=== PATIENT | female | born 1950 | race Caucasian/White ===

== ENCOUNTER → 2021-06-07 12:10 | Outpatient (CLI) | payer OTHER, SELFPAY ==
[2021-06-07 13:59] LABS: Add Manual Diff / Slide Review NO; Basophils Absolute Auto 0 /uL (0-100); Basophils Percent Auto 0.5 % (0-2); Eosinophils Absolute Auto 0 /uL (0-450); Hematocrit 40.6 % (36-46); Hemoglobin 13.1 g/dL (12.0-16.0); Lymphocytes Absolute Auto 1300 /uL (1100-4500); Lymphocytes Percent Auto 30.5 % (25-40); Mean Corpuscular HGB Conc 32.4 % (30-36); Mean Corpuscular Hemoglobin 32.6 PG (26-34); Mean Corpuscular Volume 100.7 fL (80-100); Monocytes Absolute Auto 300 /uL (0-900); Monocytes Percent Auto 6.4 % (3-14); Neutrophils Absolute Auto 2700 /uL (1500-7000); Neutrophils Percent Auto 62.6 % (50-75); Platelet Count 168 X10^3/uL (150-400); Red Blood Cell Count 4.03 X10^6/uL (4.0-5.2); Red Cell Distribution Width 14.1 % (11.6-14.8); White Blood Cell Count 4.3 X10^3/uL (4.5-11.0)
[2021-06-07 14:21] LABS: Alanine Aminotransferase 25 IU/L (<35); Albumin 4.2 g/dL (3.5-5.0); Albumin Globulin Ratio 1.6 (1.0-2.8); Alkaline Phosphatase 48 U/L (38-126); Aspartate Aminotransferase 40 IU/L (14-36); BUN Creatinine Ratio 22.5 (6-22); Bilirubin Total 1.4 mg/dL (0.2-1.3); Blood Urea Nitrogen 16 mg/dL (7-17); Calcium 9.7 mg/dL (8.4-10.2); Carbon Dioxide 27 mmol/L (22-32); Chloride 107 mmol/L (98-107); Cholesterol 184 mg/dL (140-199); Estimated Glomerular Filt Rate > 60.0 mL/min (>60); Globulin 2.7 g/dL (1.7-4.1); Glucose 98 mg/dL (80-110); HDL Cholesterol 96 mg/dL (40-60); HEMOLYSIS 15 (0-50); LDL Cholesterol Calculated 74 mg/dL (<100); Sodium 140 mmol/L (137-145); Total Protein 6.9 g/dL (6.3-8.2); Triglycerides 70 mg/dL (35-150)
[2021-06-07 14:51] LABS: TSH w/ Reflex to FT4 0.28 uIU/mL (0.47-4.68)
[2021-06-07 15:53] LABS: Free T4, Direct Thyroxine 1.52 ng/dL (0.78-2.19)
== END ==
PROVIDERS: PCP Family Medicine; Referring Provider Family Medicine; Visit Provider Family Medicine
DX: E78.5 Hyperlipidemia, unspecified (principal); E06.3 Autoimmune thyroiditis; M1A.9XX0 Chronic gout, unspecified, without tophus (tophi); J45.20 Mild intermittent asthma, uncomplicated
CPT/HCPCS: 36415; 80053; 80061; 84439; 84443; 85025

== ENCOUNTER 2021-07-11 10:30 | Outpatient (RCR) | payer OTHER, SELFPAY ==
--- NOTE | 2021-07-03 17:19 | PT.OIE ---
Current Diagnoses Other chronic pain (07/03/21) Dorsalgia, unspecified (07/03/21) Past Medical History (Last Updated 07/01/21 @ 13:59 by Gerald Bear MD) Asthma Bradycardia Chicken pox Chronic back pain Foot pain Gout Roberto's thyroiditis Hearing loss History of tubal ligation (~07/05/79) Hyperlipidemia Measles Osteoarthritis Shoulder pain Sleep apnea Urge incontinence Wears glasses Past Surgical History (Last Updated 06/10/21 @ 13:57 by Sondra Deleon) Anesthesia History of tubal ligation (~07/05/79) Visit Care Team Role Provider Type Gerald Bear MD Attending Provider Physician Family Provider Primary Care Provider Referring Provider Specialty: [facility] Practice Address: [address] [place] [address], [facility] Email: [email or web address] Physical Therapy Initial Evaluation PT-OP-A Visit Information Start: 07/03/21 16:40 Freq: Status: Active Protocol: Document 07/03/21 16:42 HH (Rec: 07/03/21 17:19 HH [email or web address]) Out-Patient Physical Therapy Visit Information Visit Information Visit Type Initial Evaluation Visit Start Time 11:15 Visit Stop Time 12:00 Total Visit Minutes 45 Visit Number 10/16 Number of SALES PROFESSIONAL BILINGUAL Visits 0 Evaluation Information Evaluation Date 07/03/21 Precautions Precautions LOWER KAL[place]AG PT-OP-B Current Condition Start: 07/03/21 16:40 Freq: Status: Active Protocol: Document 07/03/21 16:42 HH (Rec: 07/03/21 17:19 HH [email or web address]) Current Condition History of Current Condition Onset Date >1 year Current Complaints L sided neck pain and hip pain History of Current Condition Mary (Ismael) is a 71 yo female here for chronic L neck and hip pain. She stated her whole left side is compressed . L lateral hip tends to hurt more after sitting and walking for a long time which also makes her leg fall asleep and numb. Standing and lying supine tend to feel better. She described it is a constant achy and worst 4/10 during sleep when she lays on her side. It wakes her up every night and has to change position. Her neck tends to hurt with muscle ache and pulling pain at L upper trap. she feels it when shes stationary for awhile. Denies tingling and numbness to UE. She noticed her symptoms started getting worse since the pandemic because she is more sedentary. PT-OP-C Subjective Start: 07/03/21 16:40 Freq: Status: Active Protocol: Document 07/03/21 16:42 HH (Rec: 07/03/21 17:19 [email or web address]) Patient Questionnaires Oswestry Low Back Index Oswestry Score 16 Oswestry Impairment 1 to 19% Impaired (Score 1-19) OP-PT Pain Assessment Location L neck Pain Location Details paraspinals and upper trap Intensity 3 Scale Used Numeric (0 - 10) Description Aching,Dull Frequency Frequent Pain Aggravating Factors Activity,Exercise Pain Alleviating Factors Inactivity L hip Pain Location Details posterior to greater trochanter Intensity 4 Scale Used Numeric (0 - 10) Description Aching,Dull Frequency Constant Pain Aggravating Factors Position,ADL's,Sitting,Walking Pain Alleviating Factors Inactivity,Lying Supine PT-OP-D Balance Start: 07/03/21 16:40 Freq: Status: Active Protocol: Document 07/03/21 16:42 HH (Rec: 07/03/21 17:19 [email or web address]) Balance Tests Single Limb Standing Single Limb- Right 8s Single Limb- Left 2s Other Other Balance Tests Performed R hip drop noted with SLS on L PT-OP-F Manual Assessment Start: 07/03/21 16:40 Freq: Status: Active Protocol: Document 07/03/21 16:42 HH (Rec: 07/03/21 17:19 [email or web address]) Manual Assessments Soft Tissue Assessment Soft Tissue Mobility Assessment significant pain to pressure inferior posterior to L greater trochanter hypertonicity noted at L piriformis hypertonicity at L cervical paraspinal, levator scap and upper trap PT-OP-G Mobility & Gait Start: 07/03/21 16:40 Freq: Status: Active Protocol: Document 07/03/21 16:42 HH (Rec: 07/03/21 17:19 [email or web address]) OP Gait Assessment Comments Gait Comments R hip drop noted with stance phase on LLE PT-OP-H Neuro Start: 07/03/21 16:40 Freq: Status: Active Protocol: Document 07/03/21 16:42 HH (Rec: 07/03/21 17:19 [email or web address]) Sensation Evaluation Gross Sensation Gross Sensation WNL Deep Tendon Reflex & Clonus Assessment Deep Tendon Reflex Bilateral Achilles Deep Tendon Reflex 2+ Normal Bilateral Patellar Deep Tendon Reflex 3+ Normal But Brisk PT-OP-K Range of Motion Start: 07/03/21 16:40 Freq: Status: Active Protocol: Document 07/03/21 16:42 HH (Rec: 07/03/21 17:19 [email or web address]) Cervical Spine Range of Motion Cervical Spine Active Degrees Testing Position Sitting Flexion 53 Extension 50 Rotation Left 40 Rotation Right 70 Lateral Flexion Left 30 Lateral Flexion Right 15 ROM Limitations Soft Tissue Tightness,Pain Lumbar Spine Range of Motion Lumbar Spine Active Degrees Comments WFL Hip Goniometric Range of Motion Hip Left Active Hip ROM WFL Yes Right Active Hip ROM WFL Yes Comments pulling pain at greater trochanter and piriformis with piriformis stretch. PT-OP-L Special Tests Start: 07/03/21 16:40 Freq: Status: Active Protocol: Document 07/03/21 16:42 HH (Rec: 07/03/21 17:19 [email or web address]) Special Tests Cervical Spine Special Tests Spurling's Test Test Results +VE L Foraminal Compression Test Results +VE L Comments extension and rotation to L Hip Special Tests FADDIR Test Results +VE Comments pulling pain at greater trochanter and piriformis with piriformis stretch. Straight Leg Raise Test Results -ve Piriformis Test Results +VE Comments pulling pain at greater trochanter and piriformis with piriformis stretch. Scour Test Test Results -ve CHACHO Test Results -ve PT-OP-M Strength Start: 07/03/21 16:40 Freq: Status: Active Protocol: Document 07/03/21 16:42 (Rec: 07/03/21 17:19 [email or web address]) Hip Strength Hip Manual Muscle Testing Right Flexion (L2) 4+ Good+ Extension (S1) 4+ Good+ Abduction 4+ Good+ Adduction 4+ Good+ Left Flexion (L2) 4- Good- Extension (S1) 4- Good- Abduction 4- Good- Adduction 4- Good- PT-OP-T Assessment and Plan Start: 07/03/21 16:40 Freq: Status: Active Protocol: Document 07/03/21 16:42 (Rec: 07/03/21 17:19 [email or web address]) Physical Therapy Assessment Evaluation Complexity Number of Personal Factors/Comorbidities 3 or More Number of Body Systems Impaired 3 Clinical Presentation at Evaluation Stable Goals special test Impairment radiating pain to L shoulder and arm Foreman/Project Manager Goal (LTG) pt will show improved neural tension to not have neural signs with cervical special tests LTG Duration 10 weeks gait Impairment pt shows R hip drop during gait Short Term Goal (STG) pt will show improved SL stability and strength to be able to stand on LLE >10 s with min R hip drop STG Duration 5 weeks [facility] Goal (LTG) pt will show improved SL stability and strength to be able to amb without R hip drop LTG Duration 10 weeks night pain Impairment night L hip pain Short Term Goal (STG) pt will be able to maintain good sleep instead of being waking up by hip pain >3 nights a week STG Duration 5 weeks [facility] Goal (LTG) pt will be able to maintain good sleep for the entire week withou being waking up by hip pain LTG Duration 10 weeks NDI Impairment will assess next visit quickdash Impairment will assess next visit Assessment Summary Assessment Mary Reaves) is a 71 yo female here for her L neck and hip pain. Upon assessment, pt shows signs of L greater trochanteric bursitis who has L hip weakness that contributes to her R hip drop during gait. She also has signs of cervical radiculopathy with radiating pain to upper trap in cervical closed pack position. Limited cervical ROM noted. Pt will benefit from skilled therapy to improve her L hip abductor strength, SL stability and cervical mobility. Therefore, she can perform ADLs and maintain good sleep. Physical Therapy Plan Frequency and Duration Frequency of Treatment 2x/Week Duration of Treatment 10 weeks Plan of Care Start Date 07/03/21 Plan of Care End Date 09/16/21 Therapeutic Interventions Therapeutic Interventions Aquatic Therapy,Balance Training,Gait Training,Home Exercise Program,Joint Mobilizations,Manual Therapy, Neuromuscular Re-education, Patient/Caregiver Education, Self-Care/Home Management,Soft Tissue Mobilization,Taping, Therapeutic Activities, Therapeutic Exercises Modalities Cold Pack/Ice Massage,Electric Stimulation,Hot Packs, Infrared Therapy,Traction- Mechanical,Ultrasound Next Visit Focus/Plan Next Note Type Treatment Note Next Visit Plan piri stretch, traction hip and neck STM on greater tro and piri clamshell and bridging
--- NOTE | 2021-07-03 17:19 | PT.OPPOC ---
Physical, Occupational & Speech Therapy At [facility] Current Diagnoses Other chronic pain (07/03/21) Dorsalgia, unspecified (07/03/21) Visit Care Team Role Provider Type Gerald Bear MD Attending Provider Physician Family Provider Primary Care Provider Referring Provider Specialty: Family Practice Address: [address] [place] [address], [facility] Email: [email or web address] Plan Of Care PT-OP-T Assessment and Plan Start: 07/03/21 16:40 Freq: Status: Active Protocol: Document 07/03/21 16:42 HH (Rec: 07/03/21 17:19 [email or web address]) Physical Therapy Assessment Evaluation Complexity Number of Personal Factors/Comorbidities 3 or More Number of Body Systems Impaired 3 Clinical Presentation at Evaluation Stable Goals special test Impairment radiating pain to L shoulder and arm Detention Goal (LTG) pt will show improved neural tension to not have neural signs with cervical special tests LTG Duration 10 weeks gait Impairment pt shows R hip drop during gait Short Term Goal (STG) pt will show improved SL stability and strength to be able to stand on LLE >10 s with min R hip drop STG Duration 5 weeks Acid Washer Operator Goal (LTG) pt will show improved SL stability and strength to be able to amb without R hip drop LTG Duration 10 weeks night pain Impairment night L hip pain Short Term Goal (STG) pt will be able to maintain good sleep instead of being waking up by hip pain >3 nights a week STG Duration 5 weeks Acid Washer Operator Goal (LTG) pt will be able to maintain good sleep for the entire week withou being waking up by hip pain LTG Duration 10 weeks NDI Impairment will assess next visit quickdash Impairment will assess next visit Assessment Summary Assessment Mary Reaves) is a 71 yo female here for her L neck and hip pain. Upon assessment, pt shows signs of L greater trochanteric bursitis who has L hip weakness that contributes to her R hip drop during gait. She also has signs of cervical radiculopathy with radiating pain to upper trap in cervical closed pack position. Limited cervical ROM noted. Pt will benefit from skilled therapy to improve her L hip abductor strength, SL stability and cervical mobility. Therefore, she can perform ADLs and maintain good sleep. Physical Therapy Plan Frequency and Duration Frequency of Treatment 2x/Week Duration of Treatment 10 weeks Plan of Care Start Date 07/03/21 Plan of Care End Date 09/16/21 Therapeutic Interventions Therapeutic Interventions Aquatic Therapy,Balance Training,Gait Training,Home Exercise Program,Joint Mobilizations,Manual Therapy, Neuromuscular Re-education, Patient/Caregiver Education, Self-Care/Home Management,Soft Tissue Mobilization,Taping, Therapeutic Activities, Therapeutic Exercises Modalities Cold Pack/Ice Massage,Electric Stimulation,Hot Packs, Infrared Therapy,Traction- Mechanical,Ultrasound Next Visit Focus/Plan Next Note Type Treatment Note Next Visit Plan piri stretch, traction hip and neck STM on greater tro and piri clamshell and bridging Plan of Care Dates Plan of Care Start Date 07/03/21 Plan of Care End Date 09/16/21 Electronically Signed by: Stacey Valerio, PT 07/03/21 [id number] Please Sign and Return: I have reviewed this Plan of Care and certify that the skilled therapy services above are required to meet the patient?s needs. Physician Signature Date Printed Name and Credentials Clinical Instructor Signature Printed Name and Credentials
--- NOTE | 2021-07-05 16:46 | PT.OTN ---
Current Diagnoses Other chronic pain (07/05/21) Dorsalgia, unspecified (07/05/21) Physical Therapy Treatment Note PT-OP-A Visit Information Start: 07/03/21 16:40 Freq: Status: Active Protocol: Document 07/05/21 13:01 (Rec: 07/05/21 16:46 [id number]) Out-Patient Physical Therapy Visit Information Visit Information Visit Type Treatment Note Visit Start Time 13:00 Visit Stop Time 13:55 Total Visit Minutes 55 Visit Number 11/16 Number of BALANCE WHEEL FACER Visits 0 PT-OP-B Current Condition Start: 07/03/21 16:40 Freq: Status: Active Protocol: Document 07/03/21 16:42 HH (Rec: 07/03/21 17:19 [email or web address]) Current Condition History of Current Condition Onset Date >1 year Current Complaints L sided neck pain and hip pain History of Current Condition Mary Reaves) is a 71 yo female here for chronic L neck and hip pain. She stated her whole left side is compressed . L lateral hip tends to hurt more after sitting and walking for a long time which also makes her leg fall asleep and numb. Standing and lying supine tend to feel better. She described it is a constant achy and worst 4/10 during sleep when she lays on her side. It wakes her up every night and has to change position. Her neck tends to hurt with muscle ache and pulling pain at L upper trap. she feels it when shes stationary for awhile. Denies tingling and numbness to UE. She noticed her symptoms started getting worse since the pandemic because she is more sedentary. PT-OP-C Subjective Start: 07/03/21 16:40 Freq: Status: Active Protocol: Document 07/05/21 13:01 (Rec: 07/05/21 16:46 [id number]) OP-PT Subjective Patient Comments Patient Comments Im ready to do therapy Patient Questionnaires Neck Disability Index NDI Score 11 Neck Disability Index Impairment 20 to 39% Impaired (Score 10- 19) Quick Dash- Upper Extremity Quick Dash UE Score 18.18 Quick Dash UE Impairment 1 to 19% Impaired (Score 1-19) PT-OP-D Balance Start: 07/03/21 16:40 Freq: Status: Active Protocol: Document 07/03/21 16:42 HH (Rec: 07/03/21 17:19 [email or web address]) Balance Tests Single Limb Standing Single Limb- Right 8s Single Limb- Left 2s Other Other Balance Tests Performed R hip drop noted with SLS on L PT-OP-F Manual Assessment Start: 07/03/21 16:40 Freq: Status: Active Protocol: Document 07/03/21 16:42 HH (Rec: 07/03/21 17:19 [email or web address]) Manual Assessments Soft Tissue Assessment Soft Tissue Mobility Assessment significant pain to pressure inferior posterior to L greater trochanter hypertonicity noted at L piriformis hypertonicity at L cervical paraspinal, levator scap and upper trap PT-OP-G Mobility & Gait Start: 07/03/21 16:40 Freq: Status: Active Protocol: Document 07/03/21 16:42 HH (Rec: 07/03/21 17:19 [email or web address]) OP Gait Assessment Comments Gait Comments R hip drop noted with stance phase on LLE PT-OP-H Neuro Start: 07/03/21 16:40 Freq: Status: Active Protocol: Document 07/03/21 16:42 HH (Rec: 07/03/21 17:19 [email or web address]) Sensation Evaluation Gross Sensation Gross Sensation WNL Deep Tendon Reflex & Clonus Assessment Deep Tendon Reflex Bilateral Achilles Deep Tendon Reflex 2+ Normal Bilateral Patellar Deep Tendon Reflex 3+ Normal But Brisk PT-OP-K Range of Motion Start: 07/03/21 16:40 Freq: Status: Active Protocol: Document 07/03/21 16:42 HH (Rec: 07/03/21 17:19 [email or web address]) Cervical Spine Range of Motion Cervical Spine Active Degrees Testing Position Sitting Flexion 53 Extension 50 Rotation Left 40 Rotation Right 70 Lateral Flexion Left 30 Lateral Flexion Right 15 ROM Limitations Soft Tissue Tightness,Pain Lumbar Spine Range of Motion Lumbar Spine Active Degrees Comments WFL Hip Goniometric Range of Motion Hip Left Active Hip ROM WFL Yes Right Active Hip ROM WFL Yes Comments pulling pain at greater trochanter and piriformis with piriformis stretch. PT-OP-L Special Tests Start: 07/03/21 16:40 Freq: Status: Active Protocol: Document 07/03/21 16:42 HH (Rec: 07/03/21 17:19 [email or web address]) Special Tests Cervical Spine Special Tests Spurling's Test Test Results +VE L Foraminal Compression Test Results +VE L Comments extension and rotation to L Hip Special Tests FADDIR Test Results +VE Comments pulling pain at greater trochanter and piriformis with piriformis stretch. Straight Leg Raise Test Results -ve Piriformis Test Results +VE Comments pulling pain at greater trochanter and piriformis with piriformis stretch. Scour Test Test Results -ve CHACHO Test Results -ve PT-OP-M Strength Start: 07/03/21 16:40 Freq: Status: Active Protocol: Document 07/03/21 16:42 (Rec: 07/03/21 17:19 [email or web address]) Hip Strength Hip Manual Muscle Testing Right Flexion (L2) 4+ Good+ Extension (S1) 4+ Good+ Abduction 4+ Good+ Adduction 4+ Good+ Left Flexion (L2) 4- Good- Extension (S1) 4- Good- Abduction 4- Good- Adduction 4- Good- PT-OP-Q Treatments Start: 07/03/21 16:40 Freq: Status: Active Protocol: Document 07/05/21 13:01 (Rec: 07/05/21 16:46 [id number]) Therapeutic Exercises Supine Exercises supine abd isometric Supine Exercise Name yellow band on knees , shoulder width Side bilateral Reps/Minutes 10s hold x 5 Comments for HEP bridging Side bilateral Reps/Minutes 3 sec hold x 10 Comments for HEP Standing Exercises upper trap stretch Reps/Minutes 15sx5 Comments for HEP pec stretch Reps/Minutes 15s x5 Comments for HEP Manual Therapy Treatment Soft Tissue Mobilization L glute Body Location + piriformis Mobilization Type Myofascial Release,Sustained Pressure,Trigger Point Release Intensity/Depth Moderate Body Position Sidelying Manual Traction hip Details L hip Body Position Supine Reps/Duration 10s hold x10 Comments inferior long axis PT-OP-R Modalities Start: 07/03/21 16:40 Freq: Status: Active Protocol: Document 07/05/21 13:01 (Rec: 07/05/21 16:46 [id number]) Hot Pack/Cold Pack Treatment Hot Pack Location cervical and lumbar Patient Position Supine Treatment Duration (minutes) 10 Patient Tolerance Good PT-OP-T Assessment and Plan Start: 07/03/21 16:40 Freq: Status: Active Protocol: Document 07/05/21 13:01 (Rec: 07/05/21 16:46 HH [id number]) Physical Therapy Assessment Goals special test Impairment radiating pain to L shoulder and arm Fdc Goal (LTG) pt will show improved neural tension to not have neural signs with cervical special tests LTG Duration 10 weeks gait Impairment pt shows R hip drop during gait Short Term Goal (STG) pt will show improved SL stability and strength to be able to stand on LLE >10 s with min R hip drop STG Duration 5 weeks Fdc Goal (LTG) pt will show improved SL stability and strength to be able to amb without R hip drop LTG Duration 10 weeks night pain Impairment night L hip pain Short Term Goal (STG) pt will be able to maintain good sleep instead of being waking up by hip pain >3 nights a week STG Duration 5 weeks Supervisor Decorating Goal (LTG) pt will be able to maintain good sleep for the entire week withou being waking up by hip pain LTG Duration 10 weeks NDI Impairment NDI =11 Supervisor Decorating Goal (LTG) pt will be able to score <5 on NDI to show improved quality of sleep LTG Duration 8 weeks quickdash Impairment score= 18.18 Supervisor Decorating Goal (LTG) pt will be able to score <10 on quickdash to show improved L UE mobility and strength for ADLs. LTG Duration 8 weeks Assessment Summary Assessment Introduced gravity eliminated hip strengthening ex in supine and neck stretches. She rodrigo session well. Will assess her tolerance next visit. Physical Therapy Plan Frequency and Duration Frequency of Treatment 2x/Week Duration of Treatment 10 weeks Plan of Care Start Date 07/03/21 Plan of Care End Date 09/16/21 Therapeutic Interventions Therapeutic Interventions Aquatic Therapy,Balance Training,Gait Training,Home Exercise Program,Joint Mobilizations,Manual Therapy, Neuromuscular Re-education, Patient/Caregiver Education, Self-Care/Home Management,Soft Tissue Mobilization,Taping, Therapeutic Activities, Therapeutic Exercises Modalities Cold Pack/Ice Massage,Electric Stimulation,Hot Packs, Infrared Therapy,Traction- Mechanical,Ultrasound Next Visit Focus/Plan Next Note Type Treatment Note Next Visit Plan piri stretch, traction hip and neck STM on greater tro and piri clamshell and bridging
--- NOTE | 2021-07-09 12:00 | PT.OTN ---
Current Diagnoses Other chronic pain (07/09/21) Dorsalgia, unspecified (07/09/21) Physical Therapy Treatment Note PT-OP-A Visit Information Start: 07/03/21 16:40 Freq: Status: Active Protocol: Document 07/09/21 11:17 HH (Rec: 07/09/21 12:00 [id number]) Out-Patient Physical Therapy Visit Information Visit Information Visit Type Treatment Note Visit Start Time 11:17 Visit Stop Time 12:00 Total Visit Minutes 43 Visit Number 12/14 Number of THREAD REELER Visits 0 PT-OP-B Current Condition Start: 07/03/21 16:40 Freq: Status: Active Protocol: Document 07/03/21 16:42 HH (Rec: 07/03/21 17:19 [email or web address]) Current Condition History of Current Condition Onset Date >1 year Current Complaints L sided neck pain and hip pain History of Current Condition Mary Reaves) is a 71 yo female here for chronic L neck and hip pain. She stated her whole left side is compressed . L lateral hip tends to hurt more after sitting and walking for a long time which also makes her leg fall asleep and numb. Standing and lying supine tend to feel better. She described it is a constant achy and worst 4/10 during sleep when she lays on her side. It wakes her up every night and has to change position. Her neck tends to hurt with muscle ache and pulling pain at L upper trap. she feels it when shes stationary for awhile. Denies tingling and numbness to UE. She noticed her symptoms started getting worse since the pandemic because she is more sedentary. PT-OP-C Subjective Start: 07/03/21 16:40 Freq: Status: Active Protocol: Document 07/09/21 11:17 HH (Rec: 07/09/21 12:00 [id number]) OP-PT Subjective Patient Comments Patient Comments I was sore for a day after last session. And my hip feels really good after. I dont have any numbness to my L hand either now. PT-OP-D Balance Start: 07/03/21 16:40 Freq: Status: Active Protocol: Document 07/03/21 16:42 HH (Rec: 07/03/21 17:19 [email or web address]) Balance Tests Single Limb Standing Single Limb- Right 8s Single Limb- Left 2s Other Other Balance Tests Performed R hip drop noted with SLS on L PT-OP-F Manual Assessment Start: 07/03/21 16:40 Freq: Status: Active Protocol: Document 07/03/21 16:42 HH (Rec: 07/03/21 17:19 [email or web address]) Manual Assessments Soft Tissue Assessment Soft Tissue Mobility Assessment significant pain to pressure inferior posterior to L greater trochanter hypertonicity noted at L piriformis hypertonicity at L cervical paraspinal, levator scap and upper trap PT-OP-G Mobility & Gait Start: 07/03/21 16:40 Freq: Status: Active Protocol: Document 07/03/21 16:42 HH (Rec: 07/03/21 17:19 [email or web address]) OP Gait Assessment Comments Gait Comments R hip drop noted with stance phase on LLE PT-OP-H Neuro Start: 07/03/21 16:40 Freq: Status: Active Protocol: Document 07/03/21 16:42 HH (Rec: 07/03/21 17:19 [email or web address]) Sensation Evaluation Gross Sensation Gross Sensation WNL Deep Tendon Reflex & Clonus Assessment Deep Tendon Reflex Bilateral Achilles Deep Tendon Reflex 2+ Normal Bilateral Patellar Deep Tendon Reflex 3+ Normal But Brisk PT-OP-K Range of Motion Start: 07/03/21 16:40 Freq: Status: Active Protocol: Document 07/03/21 16:42 HH (Rec: 07/03/21 17:19 [email or web address]) Cervical Spine Range of Motion Cervical Spine Active Degrees Testing Position Sitting Flexion 53 Extension 50 Rotation Left 40 Rotation Right 70 Lateral Flexion Left 30 Lateral Flexion Right 15 ROM Limitations Soft Tissue Tightness,Pain Lumbar Spine Range of Motion Lumbar Spine Active Degrees Comments WFL Hip Goniometric Range of Motion Hip Left Active Hip ROM WFL Yes Right Active Hip ROM WFL Yes Comments pulling pain at greater trochanter and piriformis with piriformis stretch. PT-OP-L Special Tests Start: 07/03/21 16:40 Freq: Status: Active Protocol: Document 07/03/21 16:42 HH (Rec: 07/03/21 17:19 [email or web address]) Special Tests Cervical Spine Special Tests Spurling's Test Test Results +VE L Foraminal Compression Test Results +VE L Comments extension and rotation to L Hip Special Tests FADDIR Test Results +VE Comments pulling pain at greater trochanter and piriformis with piriformis stretch. Straight Leg Raise Test Results -ve Piriformis Test Results +VE Comments pulling pain at greater trochanter and piriformis with piriformis stretch. Scour Test Test Results -ve CHACHO Test Results -ve PT-OP-M Strength Start: 07/03/21 16:40 Freq: Status: Active Protocol: Document 07/03/21 16:42 HH (Rec: 07/03/21 17:19 HH [email or web address]) Hip Strength Hip Manual Muscle Testing Right Flexion (L2) 4+ Good+ Extension (S1) 4+ Good+ Abduction 4+ Good+ Adduction 4+ Good+ Left Flexion (L2) 4- Good- Extension (S1) 4- Good- Abduction 4- Good- Adduction 4- Good- PT-OP-Q Treatments Start: 07/03/21 16:40 Freq: Status: Active Protocol: Document 07/09/21 11:17 (Rec: 07/09/21 12:00 [id number]) Therapeutic Exercises Supine Exercises supine abd isometric Supine Exercise Name yellow band on knees , shoulder width Side bilateral Reps/Minutes 10s hold x 5 Comments for HEP bridging Side bilateral Reps/Minutes 3 sec hold x 10 Comments for HEP Standing Exercises wrist extensors stretch Side bilateral Reps/Minutes 10s x 5 Comments for HEP upper trap stretch Reps/Minutes 15sx5 Comments for HEP pec stretch Reps/Minutes 15s x5 Comments for HEP Gait Training Gait Activity hip level Surface ground level Distance/Duration 20 ft x 8 rounds Treatment Focus hip stability Comments hands on both hips, cues on level hip with mirror assistance. Manual Therapy Treatment Soft Tissue Mobilization L glute Body Location + piriformis Mobilization Type Myofascial Release,Sustained Pressure,Trigger Point Release Intensity/Depth Moderate Body Position Sidelying Manual Traction hip Details L hip Body Position Supine Reps/Duration 10s hold x10 Comments inferior long axis Self-Care/Home Management Treatment Education Other Education recommended pt to wear shoes with better heel support and cushion to provide lateral stability since she always wear sandals. PT-OP-R Modalities Start: 07/03/21 16:40 Freq: Status: Active Protocol: Document 07/05/21 13:01 (Rec: 07/05/21 16:46 [id number]) Hot Pack/Cold Pack Treatment Hot Pack Location cervical and lumbar Patient Position Supine Treatment Duration (minutes) 10 Patient Tolerance Good PT-OP-T Assessment and Plan Start: 07/03/21 16:40 Freq: Status: Active Protocol: Document 07/09/21 11:17 (Rec: 07/09/21 12:00 [id number]) Physical Therapy Assessment Goals special test Impairment radiating pain to L shoulder and arm Core Blower Operator Goal (LTG) pt will show improved neural tension to not have neural signs with cervical special tests LTG Duration 10 weeks gait Impairment pt shows R hip drop during gait Short Term Goal (STG) pt will show improved SL stability and strength to be able to stand on LLE >10 s with min R hip drop STG Duration 5 weeks Core Blower Operator Goal (LTG) pt will show improved SL stability and strength to be able to amb without R hip drop LTG Duration 10 weeks night pain Impairment night L hip pain Short Term Goal (STG) pt will be able to maintain good sleep instead of being waking up by hip pain >3 nights a week STG Duration 5 weeks Core Blower Operator Goal (LTG) pt will be able to maintain good sleep for the entire week withou being waking up by hip pain LTG Duration 10 weeks NDI Impairment NDI =11 Core Blower Operator Goal (LTG) pt will be able to score <5 on NDI to show improved quality of sleep LTG Duration 8 weeks quickdash Impairment score= 18.18 Core Blower Operator Goal (LTG) pt will be able to score <10 on quickdash to show improved L UE mobility and strength for ADLs. LTG Duration 8 weeks Assessment Summary Assessment pt shows good progress with less neck and radiating numbness to L hand, along with less hip pain at night. Added wrist extensor stretch today and recommended her to wear shoes with better heel support to provide lateral hip stability. Also educated her to keep her hip level during gait to prevent excessive stress on greater trochanter. Physical Therapy Plan Frequency and Duration Frequency of Treatment 2x/Week Duration of Treatment 10 weeks Plan of Care Start Date 07/03/21 Plan of Care End Date 09/16/21 Therapeutic Interventions Therapeutic Interventions Aquatic Therapy,Balance Training,Gait Training,Home Exercise Program,Joint Mobilizations,Manual Therapy, Neuromuscular Re-education, Patient/Caregiver Education, Self-Care/Home Management,Soft Tissue Mobilization,Taping, Therapeutic Activities, Therapeutic Exercises Modalities Cold Pack/Ice Massage,Electric Stimulation,Hot Packs, Infrared Therapy,Traction- Mechanical,Ultrasound Next Visit Focus/Plan Next Note Type Treatment Note Next Visit Plan piri stretch, traction hip and neck STM on greater tro and piri clamshell and bridging
--- NOTE | 2021-07-11 11:16 | PT.OTN ---
Current Diagnoses Other chronic pain (07/11/21) Dorsalgia, unspecified (07/11/21) Physical Therapy Treatment Note PT-OP-A Visit Information Start: 07/03/21 16:40 Freq: Status: Active Protocol: Document 07/11/21 10:37 HH (Rec: 07/11/21 11:15 [id number]) Out-Patient Physical Therapy Visit Information Visit Information Visit Type Treatment Note Visit Start Time 10:34 Visit Stop Time 11:15 Total Visit Minutes 41 Visit Number 01/14 Number of UX INFORMATION ARCHITECT Visits 0 PT-OP-B Current Condition Start: 07/03/21 16:40 Freq: Status: Active Protocol: Document 07/03/21 16:42 HH (Rec: 07/03/21 17:19 [email or web address]) Current Condition History of Current Condition Onset Date >1 year Current Complaints L sided neck pain and hip pain History of Current Condition Mary Reaves) is a 71 yo female here for chronic L neck and hip pain. She stated her whole left side is compressed . L lateral hip tends to hurt more after sitting and walking for a long time which also makes her leg fall asleep and numb. Standing and lying supine tend to feel better. She described it is a constant achy and worst 4/10 during sleep when she lays on her side. It wakes her up every night and has to change position. Her neck tends to hurt with muscle ache and pulling pain at L upper trap. she feels it when shes stationary for awhile. Denies tingling and numbness to UE. She noticed her symptoms started getting worse since the pandemic because she is more sedentary. PT-OP-C Subjective Start: 07/03/21 16:40 Freq: Status: Active Protocol: Document 07/11/21 10:37 HH (Rec: 07/11/21 11:15 [id number]) OP-PT Subjective Patient Comments Patient Comments I was sore yesterday but im pretty good now. I only had a little numbness to my L hand yesterday. Patient Reported Progress Improving PT-OP-D Balance Start: 07/03/21 16:40 Freq: Status: Active Protocol: Document 07/03/21 16:42 HH (Rec: 07/03/21 17:19 [email or web address]) Balance Tests Single Limb Standing Single Limb- Right 8s Single Limb- Left 2s Other Other Balance Tests Performed R hip drop noted with SLS on L PT-OP-F Manual Assessment Start: 07/03/21 16:40 Freq: Status: Active Protocol: Document 07/03/21 16:42 HH (Rec: 07/03/21 17:19 [email or web address]) Manual Assessments Soft Tissue Assessment Soft Tissue Mobility Assessment significant pain to pressure inferior posterior to L greater trochanter hypertonicity noted at L piriformis hypertonicity at L cervical paraspinal, levator scap and upper trap PT-OP-G Mobility & Gait Start: 07/03/21 16:40 Freq: Status: Active Protocol: Document 07/03/21 16:42 HH (Rec: 07/03/21 17:19 [email or web address]) OP Gait Assessment Comments Gait Comments R hip drop noted with stance phase on LLE PT-OP-H Neuro Start: 07/03/21 16:40 Freq: Status: Active Protocol: Document 07/03/21 16:42 HH (Rec: 07/03/21 17:19 [email or web address]) Sensation Evaluation Gross Sensation Gross Sensation WNL Deep Tendon Reflex & Clonus Assessment Deep Tendon Reflex Bilateral Achilles Deep Tendon Reflex 2+ Normal Bilateral Patellar Deep Tendon Reflex 3+ Normal But Brisk PT-OP-K Range of Motion Start: 07/03/21 16:40 Freq: Status: Active Protocol: Document 07/03/21 16:42 HH (Rec: 07/03/21 17:19 [email or web address]) Cervical Spine Range of Motion Cervical Spine Active Degrees Testing Position Sitting Flexion 53 Extension 50 Rotation Left 40 Rotation Right 70 Lateral Flexion Left 30 Lateral Flexion Right 15 ROM Limitations Soft Tissue Tightness,Pain Lumbar Spine Range of Motion Lumbar Spine Active Degrees Comments WFL Hip Goniometric Range of Motion Hip Left Active Hip ROM WFL Yes Right Active Hip ROM WFL Yes Comments pulling pain at greater trochanter and piriformis with piriformis stretch. PT-OP-L Special Tests Start: 07/03/21 16:40 Freq: Status: Active Protocol: Document 07/03/21 16:42 HH (Rec: 07/03/21 17:19 [email or web address]) Special Tests Cervical Spine Special Tests Spurling's Test Test Results +VE L Foraminal Compression Test Results +VE L Comments extension and rotation to L Hip Special Tests FADDIR Test Results +VE Comments pulling pain at greater trochanter and piriformis with piriformis stretch. Straight Leg Raise Test Results -ve Piriformis Test Results +VE Comments pulling pain at greater trochanter and piriformis with piriformis stretch. Scour Test Test Results -ve CHACHO Test Results -ve PT-OP-M Strength Start: 07/03/21 16:40 Freq: Status: Active Protocol: Document 07/03/21 16:42 HH (Rec: 07/03/21 17:19 HH [email or web address]) Hip Strength Hip Manual Muscle Testing Right Flexion (L2) 4+ Good+ Extension (S1) 4+ Good+ Abduction 4+ Good+ Adduction 4+ Good+ Left Flexion (L2) 4- Good- Extension (S1) 4- Good- Abduction 4- Good- Adduction 4- Good- PT-OP-Q Treatments Start: 07/03/21 16:40 Freq: Status: Active Protocol: Document 07/11/21 10:37 HH (Rec: 07/11/21 11:15 [id number]) Cardio Equipment Recumbent Stepper (Sci-Fit) Duration (Minutes) 4 Resistance 2 Seat Position 14 Therapeutic Exercises Supine Exercises supine clamshell Supine Exercise Name unilateral Resistance yellow band Reps/Minutes 10 x2 Comments for HEP bridging Side bilateral Reps/Minutes 3 sec hold x 10 Comments for HEP, reduce hip height Standing Exercises levator scap stretch Reps/Minutes 10 s hold x 3 Comments for HEP upper trap stretch Reps/Minutes 15sx5 Comments for HEP Gait Training Gait Activity hip level Surface ground level Distance/Duration 20 ft x 8 rounds Treatment Focus hip stability Comments hands on both hips, cues on level hip with mirror assistance. Manual Therapy Treatment Soft Tissue Mobilization L glute Body Location + piriformis Mobilization Type Myofascial Release,Sustained Pressure,Trigger Point Release Intensity/Depth Moderate Body Position Sidelying Comments significant reduce in pain at greater trochanter Nerve Glides median nerve glide Nerve passive by PT Details L PT-OP-R Modalities Start: 07/03/21 16:40 Freq: Status: Active Protocol: Document 07/05/21 13:01 HH (Rec: 07/05/21 16:46 [id number]) Hot Pack/Cold Pack Treatment Hot Pack Location cervical and lumbar Patient Position Supine Treatment Duration (minutes) 10 Patient Tolerance Good PT-OP-T Assessment and Plan Start: 07/03/21 16:40 Freq: Status: Active Protocol: Document 07/11/21 10:37 (Rec: 07/11/21 11:15 [id number]) Physical Therapy Assessment Goals special test Impairment radiating pain to L shoulder and arm Percussion Teacher Goal (LTG) pt will show improved neural tension to not have neural signs with cervical special tests LTG Duration 10 weeks gait Impairment pt shows R hip drop during gait Short Term Goal (STG) pt will show improved SL stability and strength to be able to stand on LLE >10 s with min R hip drop STG Duration 5 weeks Percussion Teacher Goal (LTG) pt will show improved SL stability and strength to be able to amb without R hip drop LTG Duration 10 weeks night pain Impairment night L hip pain Short Term Goal (STG) pt will be able to maintain good sleep instead of being waking up by hip pain >3 nights a week STG Duration 5 weeks Percussion Teacher Goal (LTG) pt will be able to maintain good sleep for the entire week withou being waking up by hip pain LTG Duration 10 weeks NDI Impairment NDI =11 Care Home Goal (LTG) pt will be able to score <5 on NDI to show improved quality of sleep LTG Duration 8 weeks quickdash Impairment score= 18.18 Care Home Goal (LTG) pt will be able to score <10 on quickdash to show improved L UE mobility and strength for ADLs. LTG Duration 8 weeks Assessment Summary Assessment Pt reports reduce in greater trochanter pain but did have some tightness at low back. Modified her bridging to lower height to reduce lumbar extension. Added supine unilateral clamshell and levator scap stretch. Will progress to SL clamshell next week Physical Therapy Plan Frequency and Duration Frequency of Treatment 2x/Week Duration of Treatment 10 weeks Plan of Care Start Date 07/03/21 Plan of Care End Date 09/16/21 Therapeutic Interventions Therapeutic Interventions Aquatic Therapy,Balance Training,Gait Training,Home Exercise Program,Joint Mobilizations,Manual Therapy, Neuromuscular Re-education, Patient/Caregiver Education, Self-Care/Home Management,Soft Tissue Mobilization,Taping, Therapeutic Activities, Therapeutic Exercises Modalities Cold Pack/Ice Massage,Electric Stimulation,Hot Packs, Infrared Therapy,Traction- Mechanical,Ultrasound Next Visit Focus/Plan Next Note Type Treatment Note Next Visit Plan piri stretch, traction hip and neck STM on greater tro and piri clamshell and bridging
--- NOTE | 2021-08-06 14:15 | PT.OPDS ---
Current Diagnoses Other chronic pain (07/11/21) Dorsalgia, unspecified (07/11/21) Visit Care Team Role Provider Type Gerald Bear MD Attending Provider Physician Family Provider Primary Care Provider Referring Provider Specialty: Family Practice Address: [address] [place] [address], [facility] Email: [email or web address] Visit Number Visit Number 01/14 Discharge Summary PT-OP-T Assessment and Plan Start: 07/03/21 16:40 Freq: Status: Active Protocol: Document 08/06/21 14:15 (Rec: 08/06/21 14:15 [email or web address]) Physical Therapy Plan Discharge Physical Therapy Discharge Reasons Patient Request Discharge Comments called pt today and she stated she has been doing well but cannot afford $40 copay. She agreed to continue her HEP and Dc from PT today.
== END 2021-08-07 13:56 ==
LOC: PHYS 10:30
PROVIDERS: Family Provider Family Medicine; PCP Family Medicine; Referring Provider Family Medicine; Visit Provider Family Medicine
DX: M54.9 Dorsalgia, unspecified (principal); G89.29 Other chronic pain
CPT/HCPCS: 97110; 97116; 97140; 97162

== ENCOUNTER → 2022-01-16 12:06 | Outpatient (CLI) | payer OTHER, SELFPAY ==
[2022-01-16 12:46] LABS: Add Manual Diff / Slide Review NO; Basophils Absolute Auto 0 /uL (0-100); Basophils Percent Auto 0.7 % (0-2); Eosinophils Absolute Auto 0 /uL (0-450); Eosinophils Percent Auto 0.1 % (2-4); Hematocrit 40.1 % (36-46); Hemoglobin 13.6 g/dL (12.0-16.0); Lymphocytes Absolute Auto 1300 /uL (1100-4500); Mean Corpuscular HGB Conc 33.8 % (30-36); Mean Corpuscular Hemoglobin 32.6 PG (26-34); Mean Corpuscular Volume 96.3 fL (80-100); Monocytes Absolute Auto 200 /uL (0-900); Monocytes Percent Auto 6.1 % (3-14); Neutrophils Absolute Auto 2600 /uL (1500-7000); Neutrophils Percent Auto 62.1 % (50-75); Platelet Count 163 X10^3/uL (150-400); Red Blood Cell Count 4.16 X10^6/uL (4.0-5.2); Red Cell Distribution Width 13.2 % (11.6-14.8); White Blood Cell Count 4.1 X10^3/uL (4.5-11.0)
[2022-01-16 12:50] LABS: Alanine Aminotransferase 21 IU/L (<35); Albumin 4.2 g/dL (3.5-5.0); Albumin Globulin Ratio 1.6 (1.0-2.8); Alkaline Phosphatase 41 U/L (38-126); Aspartate Aminotransferase 25 IU/L (14-36); Bilirubin Total 1.1 mg/dL (0.2-1.3); Blood Urea Nitrogen 19 mg/dL (7-17); Calcium 9.3 mg/dL (8.4-10.2); Carbon Dioxide 30 mmol/L (22-32); Chloride 105 mmol/L (98-107); Estimated Glomerular Filt Rate > 60 mL/min (>60); Globulin 2.7 g/dL (1.7-4.1); Glucose 120 mg/dL (80-110); HEMOLYSIS < 15 (0-50); Potassium 3.8 mmol/L (3.4-5.1); Sodium 141 mmol/L (137-145); Total Protein 6.9 g/dL (6.3-8.2)
[2022-01-16 16:13] LABS: Free T4, Direct Thyroxine 1.75 ng/dL (0.78-2.19)
== END ==
PROVIDERS: Family Provider Family Medicine; PCP Family Medicine; Referring Provider Family Medicine; Visit Provider Family Medicine
DX: E78.5 Hyperlipidemia, unspecified (principal); R00.1 Bradycardia, unspecified; E06.3 Autoimmune thyroiditis; D72.819 Decreased white blood cell count, unspecified
CPT/HCPCS: 36415; 80053; 84439; 84443; 85025

== ENCOUNTER → 2022-07-16 11:35 | Outpatient (CLI) | payer OTHER, SELFPAY ==
--- NOTE | 2022-07-16 | DI.MG.S_ITS ---
BILATERAL DIGITAL SCREENING MAMMOGRAM 3D/2D WITH CAD: 07/16/2022 CLINICAL: Routine screening. No prior exams were available for comparison. Both breasts are heterogeneously dense, which may obscure small masses (category c / 51-75% glandular tissue). Current study was also evaluated with a Computer Aided Detection (CAD) system. There is an oval focal asymmetry in the right breast at 10 o'clock middle depth. There is an oil cyst in the left breast at 4 o'clock middle depth. No other significant masses or calcifications are seen in either breast. IMPRESSION: INCOMPLETE: NEEDS ADDITIONAL IMAGING EVALUATION The oval focal asymmetry in the right breast at 10 o'clock middle depth likely represents a cyst and is indeterminate. Additional views with possible ultrasound are recommended. Based on the Tyrer Cuzick model (a risk assessment model) the patient's lifetime risk is 5.5% and her 10 year risk is 3.8%. According to the ACR, ACS, and NCCN guidelines, an annual breast MRI exam along with mammogram is recommended if the patient's lifetime risk is 20% or greater. This exam was interpreted at Station ID: [id number]. NOTE: For mammograms, a report in lay terms will be sent to the patient. Approximately 15% of breast malignancies will not be visualized mammographically. In the management of a palpable breast mass, a negative mammogram must not discourage biopsy of a clinically suspicious lesion. Electronically Signed By: Cristy cisneros/:07/29/2022 13:48:52 letter sent: Additional Imaging Needed ACR BI-RADS Category 0: Incomplete [id number]
== END ==
PROVIDERS: Family Provider Family Medicine; PCP Family Medicine; Referring Provider Family Medicine; Visit Provider Family Medicine
DX: Z12.31 Encounter for screening mammogram for malignant neoplasm of breast (principal)
CPT/HCPCS: 77063; 77067

== ENCOUNTER → 2022-07-18 11:13 | Outpatient (CLI) | payer OTHER, SELFPAY ==
[2022-07-18 11:51] LABS: Add Manual Diff / Slide Review NO; Basophils Absolute Auto 0 /uL (0-100); Basophils Percent Auto 0.5 % (0-2); Eosinophils Absolute Auto 0 /uL (0-450); Hematocrit 39.3 % (36-46); Hemoglobin 13.1 g/dL (12.0-16.0); Lymphocytes Absolute Auto 1300 /uL (1100-4500); Lymphocytes Percent Auto 34.1 % (25-40); Mean Corpuscular HGB Conc 33.3 % (30-36); Mean Corpuscular Hemoglobin 32.8 PG (26-34); Mean Corpuscular Volume 98.7 fL (80-100); Monocytes Absolute Auto 300 /uL (0-900); Monocytes Percent Auto 8.6 % (3-14); Neutrophils Absolute Auto 2200 /uL (1500-7000); Neutrophils Percent Auto 56.8 % (50-75); Platelet Count 169 X10^3/uL (150-400); Red Blood Cell Count 3.99 X10^6/uL (4.0-5.2); Red Cell Distribution Width 13.6 % (11.6-14.8); White Blood Cell Count 3.9 X10^3/uL (4.5-11.0)
[2022-07-18 12:33] LABS: Alanine Aminotransferase 33 IU/L (<35); Albumin 3.9 g/dL (3.5-5.0); Albumin Globulin Ratio 1.3 (1.0-2.8); Alkaline Phosphatase 53 U/L (38-126); Aspartate Aminotransferase 32 IU/L (14-36); BUN Creatinine Ratio 24.3 (6-22); Blood Urea Nitrogen 18 mg/dL (7-17); Calcium 8.8 mg/dL (8.4-10.2); Carbon Dioxide 29 mmol/L (22-32); Chloride 105 mmol/L (98-107); Cholesterol 151 mg/dL (140-199); Estimated Glomerular Filt Rate > 60 mL/min (>60); Globulin 2.9 g/dL (1.7-4.1); Glucose 98 mg/dL (80-110); HDL Cholesterol 59 mg/dL (40-60); HEMOLYSIS < 15 (0-50); Hemoglobin A1C% w Est Avg Glu 5.1 % (4.0-6.0); LDL Cholesterol Calculated 80 mg/dL (<100); Sodium 140 mmol/L (137-145); Total Protein 6.8 g/dL (6.3-8.2); Triglycerides 61 mg/dL (35-150)
[2022-07-18 13:43] LABS: TSH w/ Reflex to FT4 1.46 uIU/mL (0.47-4.68)
== END ==
PROVIDERS: Family Provider Family Medicine; PCP Family Medicine; Referring Provider Family Medicine; Visit Provider Family Medicine
DX: E06.3 Autoimmune thyroiditis (principal); R73.9 Hyperglycemia, unspecified; E78.5 Hyperlipidemia, unspecified
CPT/HCPCS: 36415; 80053; 80061; 83036; 84443; 85025

== ENCOUNTER → 2022-07-22 09:34 | Outpatient (CLI) | payer OTHER, SELFPAY | PROVIDERS: Family Provider Family Medicine; PCP Family Medicine; Visit Provider Family Medicine | DX: J02.9 Acute pharyngitis, unspecified (principal) | CPT/HCPCS: 87070 ==

== ENCOUNTER → 2022-08-28 12:08 | Outpatient (CLI) | payer OTHER, SELFPAY ==
--- NOTE | 2022-08-28 | DI.MG.S_ITS ---
UNILATERAL RIGHT DIGITAL DIAGNOSTIC MAMMOGRAM 3D/2D WITH ADDITIONAL VIEWS: 08/28/2022 CLINICAL: Additional evaluation requested from prior study. Comparison is made to exam dated: 07/16/2022 mammogram - [facility]. The right breast is heterogeneously dense, which may obscure small masses (category c / 51-75% glandular tissue). There are multiple oval equal density focal asymmetries in the right breast superior lateral quadrant middle depth. These are confirmed in additional views. No other significant masses or calcifications are seen in the breast. IMPRESSION: INCOMPLETE: NEEDS ADDITIONAL IMAGING EVALUATION The multiple oval equal density focal asymmetries in the right breast likely represent cysts and/or solid masses and are indeterminate. An ultrasound is recommended for further evaluation and is scheduled to immediately follow this examination. Based on the Tyrer Cuzick model (a risk assessment model) the patient's lifetime risk is 5.5% and her 10 year risk is 3.8%. According to the ACR, ACS, and NCCN guidelines, an annual breast MRI exam along with mammogram is recommended if the patient's lifetime risk is 20% or greater. This exam was interpreted at Station ID: [id number]. NOTE: For mammograms, a report in lay terms will be sent to the patient. Approximately 15% of breast malignancies will not be visualized mammographically. In the management of a palpable breast mass, a negative mammogram must not discourage biopsy of a clinically suspicious lesion. Electronically Signed By: Wilbert Meyer M.D. aty/:08/28/2022 14:41:22 ACR BI-RADS Category 0: Incomplete 3340F
--- NOTE | 2022-08-28 12:10 | DI.US.S_ITS ---
ULTRASOUND OF RIGHT BREAST AND AXILLA: 08/28/2022 CLINICAL: Patient returns today to evaluate focal asymmetries in the right breast. Comparison is made to exams dated: 08/28/2022 mammogram and 07/16/2022 mammogram - [facility]. Color flow and real-time ultrasound of the right breast axilla were performed. Dewey scale images of the real-time examination were reviewed. There is a 0.7 cm x 0.6 cm x 0.7 cm wider than tall oval mass with a circumscribed margin in the right breast at 9 o'clock middle depth 4 cm from the nipple. This oval mass is hypoechoic with a well-defined boundary and no posterior acoustic shadowing or enhancement. This correlates with mammography findings. Color flow imaging demonstrates that there is vascularity present. There also is a 1.2 cm x 0.6 cm x 0.9 cm wider than tall oval cyst in the right breast at 9 o'clock posterior depth 8 cm from the nipple. This oval cyst is hypoechoic with a well-defined boundary, internal echoes, and posterior acoustic enhancement. This correlates with mammography findings. Color flow imaging demonstrates that there is no vascularity present. Additionally, there is a 0.3 cm x 0.4 cm x 0.3 cm oval cyst in the right breast at 9 o'clock anterior depth 1 cm from the nipple. This oval cyst displays internal echoes. This correlates as an incidental finding. Color flow imaging demonstrates that there is no vascularity present. In addition, there is a benign 2.5 cm x 0.8 cm x 2.1 cm wider than tall oval cyst in the right breast at 9 o'clock middle depth 4 cm from the nipple. This oval cyst is anechoic with a well-defined boundary and posterior acoustic enhancement. This correlates with mammography findings. Color flow imaging demonstrates that there is no vascularity present. No significant abnormalities were seen sonographically in the right axilla. IMPRESSION: SUSPICIOUS OF MALIGNANCY The 0.7 cm x 0.6 cm x 0.7 cm wider than tall oval mass in the right breast at 9 o'clock middle depth resembles a complex cyst, a solid mass, or a fibroadenoma and is at a low suspicion for malignancy. An ultrasound guided biopsy is recommended. The 1.2 cm x 0.6 cm x 0.9 cm wider than tall oval cyst in the right breast at 9 o'clock posterior depth most likely is a complicated cyst and is probably benign. Follow up mammogram and right ultrasound is recommended in 6 months to document stability. The 0.3 cm x 0.4 cm x 0.3 cm oval cyst in the right breast at 9 o'clock anterior depth is consistent with a complicated cyst and is probably benign. Follow up mammogram and right ultrasound is recommended in 6 months to document stability. The 2.5 cm x 0.8 cm x 2.1 cm wider than tall oval simple cyst in the right breast at 9 o'clock middle depth is benign. Findings and biopsy recommendations were conveyed to the patient during today's evaluation by Dr. Smith. This exam was interpreted at Station ID: [id number]. Electronically Signed By: Wilbert Meyer M.D. at/:08/28/2022 14:50:51 letter sent: Biopsy Required Ultrasound BI-RADS: 4a Low suspicion for malignancy
== END ==
PROVIDERS: Family Provider Family Medicine; PCP Family Medicine; Referring Provider Family Medicine; Visit Provider Family Medicine
DX: N60.01 Solitary cyst of right breast (principal); R92.8 Other abnormal and inconclusive findings on diagnostic imaging of breast; N60.02 Solitary cyst of left breast
CPT/HCPCS: 76642; 77065; G0279

== ENCOUNTER → 2022-09-30 10:09 | Outpatient (CLI) | payer OTHER, SELFPAY ==
--- NOTE | 2022-09-30 | DI.MG.S_ITS ---
UNILATERAL RIGHT DIGITAL DIAGNOSTIC MAMMOGRAM 3D/2D: 09/30/2022 CLINICAL: Post clip right. Comparison is made to exams dated: 09/30/2022 ultrasound biopsy, 08/28/2022 ultrasound, 08/28/2022 mammogram, and 07/16/2022 mammogram - [facility]. The right breast is heterogeneously dense, which may obscure small masses (category c / 51-75% glandular tissue). There is a marker clip in the appropriate position in the right breast at 9 o'clock middle depth. This marker clip placement is at the biopsy site. This correlates with ultrasound findings and the biopsy. IMPRESSION: POST PROCEDURE MAMMOGRAM FOR MARKER PLACEMENT There was a successful marker clip placement in the right breast middle depth. Based on the Tyrer Cuzick model (a risk assessment model) the patient's lifetime risk is 5.5% and her 10 year risk is 3.8%. According to the ACR, ACS, and NCCN guidelines, an annual breast MRI exam along with mammogram is recommended if the patient's lifetime risk is 20% or greater. This exam was interpreted at Station ID: [id number]. NOTE: For mammograms, a report in lay terms will be sent to the patient. Approximately 15% of breast malignancies will not be visualized mammographically. In the management of a palpable breast mass, a negative mammogram must not discourage biopsy of a clinically suspicious lesion. Electronically Signed By: Wilbert Meyer M.D. aty/:09/30/2022 12:55:35 ACR BI-RADS Category Post-procedure mammogram for marker placement
--- NOTE | 2022-09-30 | PATH_ITS ---
[facility] Accession Number: [id number] No. of containers..01 Tissue . 01 Material submitted: . breast - RIGHT BREAST MASS 9:00 4CMFN . 01 Diagnosis: Right Breast, Mass 9 o'clock, 4 cm from Nipple, Image-Guided Core Biopsy: Focal areas of old hemorrhage and fibrosis associated with chronic/histiocytic inflammation, consistent with previous biopsy site reaction. Rare focus of atypical ductal hyperplasia. Negative for malignancy. MRV 10/01/2022 1727 Local . 01 Electronically signed: . Sonja Austin MD, Pathologist NPI- [id number] . 01 Gross description: . Received one formalin-filled container, labeled with the patient's name and designated right breast mass 9 o'clock 4 cm FN. The specimen is received with a plastic filter in container, sample loose in container and consists of multiple fragments of yellow-blanco soft tissue which range in size from 0.1 x 0.1 x 0.1 cm to 1.2 x 0.3 x 0.3 cm. All fragments are totally submitted in one cassette. Possible collection date and time per requisition: 09/30/2022 at 11:08. Total fixation time: Approximately 16 hours. ([id number]) /FRR 10/01/2022 0242 Local . 01 Pathologist provided ICD-10: R92.8 . 01 CPT . 348670 Specimen Comment: A courtesy copy of this report has been sent to [facility] Pathology Performed at: [address] [facility] Cyt[facility] [address] [place] [address], [place], [place] [id number] MD Aquiles Billy MD Phone: [phone]
--- NOTE | 2022-09-30 | DI.US.S_ITS ---
ULTRASOUND GUIDED BIOPSY RIGHT BREAST USING VACUUM DEVICE WITH MARKING DEVICE INSERTED AND POST MAMMOGRAPHIC IMAGIN09/30/2022 CLINICAL: Right breast mass. PATIENT CONSENT: Risks (minor bleeding, infection, vasovagal reaction and repeat procedure), benefits and alternatives were explained to the patient and written informed consent was obtained. Correlation is made to exams dated: 08/28/2022 ultrasound, 08/28/2022 mammogram, and 07/16/2022 mammogram - [facility]. An ultrasound guided biopsy using real-time ultrasound was performed for the 0.7 cm x 0.6 cm x 0.7 cm oval mass located in the right breast at 9 o'clock middle depth 4 cm from the nipple. This was described on the previous mammography and ultrasound reports. The skin was prepped in the usual manner. Local anesthetic was administered to the access site. A skin sunny was made in the breast. The abnormality was approached from the lateral aspect. A 13 gauge biopsy needle was placed adjacent to the abnormality under ultrasound guidance. Once the needle was documented to be in the correct location, five specimens were obtained using the Mammotome biopsy system. A clip was inserted into the biopsy cavity. A sterile dressing was applied to the access site. Post procedure mammographic imaging demonstrates the location device at the targeted area. The specimens were sent to the laboratory for pathological analysis. IMPRESSION: ULTRASOUND GUIDED BIOPSY HIGH RISK BENIGN Ultrasound guided biopsy of the 0.7 cm x 0.6 cm x 0.7 cm mass in the right breast at 9 o'clock middle depth 4 cm from the nipple was successful. Pathology indicates histiocytic inflammation and fibrosis and rare focus of high risk benign atypical ductal hyperplasia (ADH). Pathology results are concordant with imaging findings. Recommend surgical consultation. Future imaging is recommended as follows: 02/28/2023 right mammogram and an ultrasound. This exam was interpreted at Station ID: [id number]. Wilbert pierce,/:10/06/2022 10:13:08
== END ==
PROVIDERS: Family Provider Family Medicine; PCP Family Medicine; Referring Provider Family Medicine; Visit Provider Family Medicine
DX: N60.91 Unspecified benign mammary dysplasia of right breast (principal)
CPT/HCPCS: 19083; 77065

== ENCOUNTER 2023-02-18 17:05 | Observation (INO) | payer OTHER, SELFPAY ==
[2023-02-18] VITALS (16 sets, daily range): BP systolic 139–189; BP diastolic 59–84; PULSE 45–72; RESP 11–31; TEMP 36.3–36.7; O2SAT 94–99; BMI 31.1
--- NOTE | 2023-02-18 17:17 | DI.RAD.S_ITS ---
PROCEDURE: XR CHEST 1V INDICATIONS: chest pain TECHNIQUE: One view of the chest was acquired. COMPARISON: None. FINDINGS: Surgical changes and devices: None. Lungs and pleura: Lungs are clear. No pleural effusions or pneumothorax. Mediastinum: Mediastinal contours appear normal. Heart size is normal. Bones and chest wall: No suspicious bony lesions. Overlying soft tissues appear unremarkable. IMPRESSION: No acute cardiopulmonary abnormality. Dictated by: Beau Galeana M.D. on 02/18/2023 at 18:05 Approved by: Beau Galeana M.D. on 02/18/2023 at 18:06
[2023-02-18 17:50] LABS: Add Manual Diff / Slide Review NO; Basophils Absolute Auto 0 /uL (0-100); Basophils Percent Auto 0.6 % (0-2); Eosinophils Absolute Auto 0 /uL (0-450); Hemoglobin 13.1 g/dL (12.0-16.0); Lymphocytes Absolute Auto 1600 /uL (1100-4500); Lymphocytes Percent Auto 28.9 % (25-40); Mean Corpuscular HGB Conc 33.5 % (30-36); Mean Corpuscular Hemoglobin 32.8 PG (26-34); Mean Corpuscular Volume 97.7 fL (80-100); Monocytes Absolute Auto 300 /uL (0-900); Monocytes Percent Auto 5.6 % (3-14); Neutrophils Absolute Auto 3500 /uL (1500-7000); Neutrophils Percent Auto 64.9 % (50-75); Platelet Count 166 X10^3/uL (150-400); Red Cell Distribution Width 13.7 % (11.6-14.8); White Blood Cell Count 5.4 X10^3/uL (4.5-11.0)
[2023-02-18 17:59] LABS: Prothrombin Time 11.4 SECONDS (10.1-12.7)
[2023-02-18 18:01] LABS: PTT Partial Thromboplastin Tim 28 SECONDS (26-36)
[2023-02-18 18:07] LABS: Alanine Aminotransferase 29 IU/L (<35); Albumin 4.2 g/dL (3.5-5.0); Albumin Globulin Ratio 1.4 (1.0-2.8); Alkaline Phosphatase 49 U/L (38-126); Aspartate Aminotransferase 27 IU/L (14-36); BUN Creatinine Ratio 15.8 (6-22); Bilirubin Total 0.9 mg/dL (0.2-1.3); Blood Urea Nitrogen 12 mg/dL (7-17); Carbon Dioxide 31 mmol/L (22-32); Chloride 104 mmol/L (98-107); Creatine Kinase 65 U/L (30-135); Estimated Glomerular Filt Rate > 60 mL/min (>60); Glucose 99 mg/dL (80-110); HEMOLYSIS 17 (0-50); Lipase 34 U/L (23-300); Magnesium 2.3 mg/dL (1.6-2.3); Potassium 3.5 mmol/L (3.4-5.1); Sodium 140 mmol/L (137-145); Total Protein 7.2 g/dL (6.3-8.2)
--- NOTE | 2023-02-18 18:16 | ED_ITS ---
HPI - Chest Pain General Chief Complaint: Chest Pain Stated Complaint: chest pain Time Seen by Provider: 02/18/23 17:57 Source: patient Mode of arrival: Family Vehicle Limitations: no limitations History of Present Illness HPI narrative: Patient is a 73-year-old female who is here for evaluation of chest discomfort. It started approximately 2 hours prior to arrival here in the ER. States it is directly in the center of her chest radiating to her back. It does feel like someone is sitting on her chest. She had very similar symptoms yesterday. Yesterday symptoms lasted a couple hours and then completely resolved. Today symptoms are similar to yesterday but they are worse. No problems breathing. No fevers. No cough. No prior cardiac history. Has never had a stress test in the past. Has not tried anything for her symptoms prior to arrival. Related Data Previous Rx's Medication Instructions Recorded albuterol sulfate 90 mcg/actuation 2 puff inhalation Q4-6H PRN 05/12/22 aerosol inhaler (Ventolin HFA) bronchospasm #6.7 grams blood sugar diagnostic (OneTouch #100 ea 09/02/22 Verio test strips) allopurinol 100 mg tablet 100 mg PO BID #180 tabs 10/07/22 ibuprofen 600 mg tablet 600 mg PO Q8H PRN pain #90 tabs 10/07/22 levothyroxine 100 mcg tablet 100 mcg PO DAILY #90 tabs 10/07/22 oxybutynin chloride 5 mg tablet 5 mg PO BID #180 tabs 10/07/22 simvastatin 80 mg tablet 80 mg PO QPM #90 tabs 10/07/22 Allergies Allergy/AdvReac Type Severity Reaction Status Date / Time No Known Drug Allergies Allergy Verified 02/18/23 17:22 Review of Systems Review of Systems ROS Unobtainable: All systems reviewed & are unremarkable except as noted in HPI and below Patient History Medical History Asthma Bradycardia Chicken pox Chronic back pain Foot pain Gout Roberto's thyroiditis Hearing loss Hyperlipidemia Measles Osteoarthritis Shoulder pain Sleep apnea Urge incontinence Wears glasses Surgical History (Updated 06/10/21 @ 13:57 by Sondra Deleon) Anesthesia History of tubal ligation (~07/05/79) Family History (Updated 06/10/21 @ 13:59 by Sondra Deleon) Mother No problems noted. Social History household members: spouse Smoking Status: Former smoker alcohol intake: current Smoking Status: Former smoker tobacco type: cigarettes alcohol intake frequency: 0-2 drinks per day Substance Use Type: does not use Exam Initial Vital Signs Initial Vital Signs: Vital Signs Temperature 97.6 F 02/18/23 17:18 Pulse Rate 59 L 02/18/23 17:18 Respiratory Rate 20 02/18/23 17:18 Blood Pressure 189/84 H 02/18/23 17:18 Pulse Oximetry 99 02/18/23 17:18 Oxygen Delivery Method Room Air 02/18/23 17:18 HENMT Head: normal to inspection and normocephalic Chest Chest: No crepitus and No tenderness Resp Effort & Inspection: normal respiratory effort Auscultation: clear to auscultation bilaterally Cardio Rate: regular rate Rhythm: regular rhythm GI Inspection: normal to inspection Skin General: no rashes or lesions noted Neuro General: patient alert, patient awake and moves all extremities Extrem General: No edema Scores HEART Score Heart Score history: Moderately Suspicious Heart Score EKG: Normal Heart Score Age: > or = 65 years old Heart Score risk factors: 1-2 risk factors Heart Score troponin: < or = to normal limit Heart Score Total: 4 Course Orders Ordered: ED Orders 02/18/23 17:17 XR chest 1V Stat EKG-12 Lead Stat 02/18/23 17:37 Complete Blood Count AUTO DIFF Stat Comprehensive Metabolic Panel Stat Lipase Stat Magnesium Stat PTT Partial Thromboplastin Gume Stat Prothrombin Time INR Stat Troponin & CK Cardiac Panel Stat 02/18/23 19:25 Lipid Panel Urgent Troponin & CK Cardiac Panel Stat 02/18/23 21:01 Exercise treadmill NON NUC Urgent 02/18/23 21:02 EC echo doppler complete Urgent Education, smoking cessation ONGOING 02/19/23 05:00 Troponin I Routine Acetaminophen (Acetaminophen 325 Mg Tablet) 650 mg PO Q6H PRN PRN Reason: Fever/Mild Pain (1-3) Last Admin: 02/18/23 23:12 Dose: 650 mg Documented By: CT Aspirin (Aspirin Ec 325 Mg Tablet) 325 mg PO DAILY ANIKET Calcium Carbonate (Calcium Carbonate 500 Mg Tab) 1,000 mg PO Q4HR PRN PRN Reason: Dyspepsia Enoxaparin Sodium (Enoxaparin 40 Mg/0.4 Ml Syringe) 40 mg SUBCUT DAILY [facility] Levothyroxine Sodium (Levothyroxine 100 Mcg Tablet) 100 mcg PO QACBREAK [facility] Morphine Sulfate (Morphine 2 Mg/Ml Inj) 2 mg IV Q5MIN PRN PRN Reason: Chest Pain Naloxone HCl (Naloxone 0.4 Mg/Ml Vial) 0.2 mg IV Q2MIN PRN PRN Reason: Opiate Reversal Nitroglycerin (Nitroglycerin 0.4 Mg Sl Tab) 0.4 mg SL [id number] PRN PRN Reason: Chest Pain Ondansetron HCl (Ondansetron 4 Mg Odt) 4 mg PO Q8HR PRN PRN Reason: Nausea And Vomiting Sennosides (Sennosides 8.6 Mg Tablet) 17.2 mg PO BEDTIME [facility] Discontinued Medications Aspirin (Aspirin 81 Mg Chew Tab) 324 mg PO NOW ONE Stop: 02/18/23 17:18 Last Admin: 02/18/23 18:27 Dose: 324 mg Documented By: JERONIMO Nitroglycerin (Nitroglycerin 0.4 Mg Sl Tab) 0.4 mg SL [id number] PRN PRN Reason: Chest Pain Last Admin: 02/18/23 18:28 Dose: 0.4 mg Documented By: JERONIMO Vital Signs Vital signs: Vital Signs - 8 hr 02/18/23 17:18 02/18/23 17:46 02/18/23 18:00 Temperature 97.6 F Pulse Rate 59 L 59 L 48 L Respiratory Rate 20 22 Blood Pressure 189/84 H Pulse Oximetry 99 98 98 Oxygen Delivery Method Room Air 02/18/23 18:01 02/18/23 18:01 02/18/23 18:30 Temperature Pulse Rate 49 L 59 L Respiratory Rate 21 19 Blood Pressure 177/82 H Pulse Oximetry 98 99 Oxygen Delivery Method 02/18/23 18:34 02/18/23 18:34 02/18/23 18:36 Temperature Pulse Rate 72 58 L Respiratory Rate 30 H 20 Blood Pressure 153/67 H Pulse Oximetry 98 97 Oxygen Delivery Method 02/18/23 18:36 02/18/23 19:00 02/18/23 19:00 Temperature Pulse Rate 50 L Respiratory Rate 11 L Blood Pressure 153/67 H 139/61 Pulse Oximetry 97 Oxygen Delivery Method 02/18/23 19:30 02/18/23 20:00 02/18/23 20:30 Temperature Pulse Rate 47 L 49 L 63 Respiratory Rate 17 21 19 Blood Pressure Pulse Oximetry 99 95 94 Oxygen Delivery Method MDM - Chest Pain Lab Data Attestation: I reviewed the patient's lab results. 02/18/23 17:37 02/18/23 17:37 Labs: Lab Results 02/18/23 02/18/23 02/18/23 Range/Units 17:37 17:37 17:37 WBC 5.4 (4.5-11.0) X10^3/uL RBC 4.00 (4.0-5.2) X10^6/uL Hgb 13.1 (12.0-16.0) g/dL Hct 39.0 (36-46) % MCV 97.7 (80-100) fL MCH 32.8 (26-34) PG MCHC 33.5 (30-36) % RDW 13.7 (11.6-14.8) % Plt Count 166 (150-400) X10^3/uL Neut % (Auto) 64.9 (50-75) % Lymph % (Auto) 28.9 (25-40) % [place] % (Auto) 5.6 (3-14) % Eos % (Auto) 0.0 L (2-4) % Baso % (Auto) 0.6 (0-2) % Neut # (Auto) 3500 (0556-6277) /uL Lymph # (Auto) 1600 (1236-2607) /uL [place] # (Auto) 300 (0-900) /uL Eos # (Auto) 0 (0-450) /uL Baso # (Auto) 0 (0-100) /uL PT 11.4 (10.1-12.7) SECONDS INR 1.0 (0.9-1.3) APTT 28 (26-36) SECONDS Sodium 140 (137-145) mmol/L Potassium 3.5 (3.4-5.1) mmol/L Chloride 104 (98-107) mmol/L Carbon Dioxide 31 (22-32) mmol/L BUN 12 (7-17) mg/dL Creatinine 0.76 (0.52-1.04) mg/dL Estimated GFR > 60 (>60) mL/min BUN/Creatinine Ratio 15.8 (6-22) Glucose 99 (80-110) mg/dL Calcium 9.0 (8.4-10.2) mg/dL Magnesium 2.3 (1.6-2.3) mg/dL Total Bilirubin 0.9 (0.2-1.3) mg/dL AST 27 (14-36) IU/L ALT 29 (<35) IU/L Alkaline Phosphatase 49 (38-126) U/L Total Creatine Kinase 65 (30-135) U/L CK-MB (CK-2) TNP CK-MB (CK-2) Rel Index TNP Troponin I < 0.012 (0.01-0.034) ng/mL NT-Pro-B Natriuret Pep (<125) pg/mL Total Protein 7.2 (6.3-8.2) g/dL Albumin 4.2 (3.5-5.0) g/dL Globulin 3.0 (1.7-4.1) g/dL Albumin/Globulin Ratio 1.4 (1.0-2.8) Triglycerides (35-150) mg/dL Cholesterol (140-199) mg/dL LDL Cholesterol, Calc (<100) mg/dL HDL Cholesterol (40-60) mg/dL Lipase 34 (23-300) U/L TSH (0.47-4.68) uIU/mL 02/18/23 02/18/23 02/18/23 Range/Units 17:37 19:25 19:25 WBC (4.5-11.0) X10^3/uL RBC (4.0-5.2) X10^6/uL Hgb (12.0-16.0) g/dL Hct (36-46) % MCV (80-100) fL MCH (26-34) PG MCHC (30-36) % RDW (11.6-14.8) % Plt Count (150-400) X10^3/uL Neut % (Auto) (50-75) % Lymph % (Auto) (25-40) % [place] % (Auto) (3-14) % Eos % (Auto) (2-4) % Baso % (Auto) (0-2) % Neut # (Auto) (3955-1761) /uL Lymph # (Auto) (2942-7549) /uL [place] # (Auto) (0-900) /uL Eos # (Auto) (0-450) /uL Baso # (Auto) (0-100) /uL PT (10.1-12.7) SECONDS INR (0.9-1.3) APTT (26-36) SECONDS Sodium (137-145) mmol/L Potassium (3.4-5.1) mmol/L Chloride (98-107) mmol/L Carbon Dioxide (22-32) mmol/L BUN (7-17) mg/dL Creatinine (0.52-1.04) mg/dL Estimated GFR (>60) mL/min BUN/Creatinine Ratio (6-22) Glucose (80-110) mg/dL Calcium (8.4-10.2) mg/dL Magnesium (1.6-2.3) mg/dL Total Bilirubin (0.2-1.3) mg/dL AST (14-36) IU/L ALT (<35) IU/L Alkaline Phosphatase (38-126) U/L Total Creatine Kinase 60 (30-135) U/L CK-MB (CK-2) TNP CK-MB (CK-2) Rel Index TNP Troponin I < 0.012 (0.01-0.034) ng/mL NT-Pro-B Natriuret Pep (<125) pg/mL Total Protein (6.3-8.2) g/dL Albumin (3.5-5.0) g/dL Globulin (1.7-4.1) g/dL Albumin/Globulin Ratio (1.0-2.8) Triglycerides 156 H (35-150) mg/dL Cholesterol 162 (140-199) mg/dL LDL Cholesterol, Calc 63 (<100) mg/dL HDL Cholesterol 68 H (40-60) mg/dL Lipase (23-300) U/L TSH 3.51 (0.47-4.68) uIU/mL 02/18/23 02/18/23 Range/Units 19:25 19:25 WBC (4.5-11.0) X10^3/uL RBC (4.0-5.2) X10^6/uL Hgb (12.0-16.0) g/dL Hct (36-46) % MCV (80-100) fL MCH (26-34) PG MCHC (30-36) % RDW (11.6-14.8) % Plt Count (150-400) X10^3/uL Neut % (Auto) (50-75) % Lymph % (Auto) (25-40) % [place] % (Auto) (3-14) % Eos % (Auto) (2-4) % Baso % (Auto) (0-2) % Neut # (Auto) (3679-8684) /uL Lymph # (Auto) (1009-2303) /uL [place] # (Auto) (0-900) /uL Eos # (Auto) (0-450) /uL Baso # (Auto) (0-100) /uL PT (10.1-12.7) SECONDS INR (0.9-1.3) APTT (26-36) SECONDS Sodium (137-145) mmol/L Potassium (3.4-5.1) mmol/L Chloride (98-107) mmol/L Carbon Dioxide (22-32) mmol/L BUN (7-17) mg/dL Creatinine (0.52-1.04) mg/dL Estimated GFR (>60) mL/min BUN/Creatinine Ratio (6-22) Glucose (80-110) mg/dL Calcium (8.4-10.2) mg/dL Magnesium 2.2 (1.6-2.3) mg/dL Total Bilirubin (0.2-1.3) mg/dL AST (14-36) IU/L ALT (<35) IU/L Alkaline Phosphatase (38-126) U/L Total Creatine Kinase (30-135) U/L CK-MB (CK-2) CK-MB (CK-2) Rel Index Troponin I (0.01-0.034) ng/mL NT-Pro-B Natriuret Pep 178 H (<125) pg/mL Total Protein (6.3-8.2) g/dL Albumin (3.5-5.0) g/dL Globulin (1.7-4.1) g/dL Albumin/Globulin Ratio (1.0-2.8) Triglycerides (35-150) mg/dL Cholesterol (140-199) mg/dL LDL Cholesterol, Calc (<100) mg/dL HDL Cholesterol (40-60) mg/dL Lipase (23-300) U/L TSH (0.47-4.68) uIU/mL Imaging Data Chest x-ray: Radiologist's Impression: PROCEDURE:? XR CHEST 1V ? INDICATIONS:? chest pain ? TECHNIQUE:? One view of the chest was acquired.? ? COMPARISON:? None. ? FINDINGS:? ? Surgical changes and devices:? None.? ? Lungs and pleura:? Lungs are clear.? No pleural effusions or pneumothorax.? ? Mediastinum:? Mediastinal contours appear normal.? Heart size is normal.? ? Bones and chest wall:? No suspicious bony lesions.? Overlying soft tissues appear unremarkable.? ? IMPRESSION:? No acute cardiopulmonary abnormality. ECG Data Attestation: I personally reviewed and interpreted this ECG as follows: Interpretation: Sinus rhythm Ventricular rate is 66 Normal axis Normal QRS Normal QTC No ST T wave changes MDM Narrative Medical decision making narrative: EKG is nonischemic. Chest x-ray is unremarkable. Troponins are negative x2. Has a heart score of 4. Patient was given an aspirin. Her symptoms resolved after nitroglycerin. She is never had any risk stratification testing. Discussed with her options to include following up with her primary doctors an outpatient versus my recommendation which was to admit her to the hospital for further testing. After discussion with her she did decide to be admitted to the hospital. I discussed the case with ABILIO Fajardo the night hospitalist who will admit for further evaluation and treatment. Discharge Plan Departure Patient Disposition: Admitted as Observation Clinical Impression: Chest pain, Hypertension Admit Date/Time: 02/18/23 20:59 Admit Provider: Jami Fajardo
[2023-02-18 18:19] LABS: Troponin I < 0.012 ng/mL (0.01-0.034)
[2023-02-18] MEDS: ASPIRIN 81 MG CHEW TAB 324 MG PO (18:27)
[2023-02-18] MEDS: NITROGLYCERIN 0.4 MG SL TAB SL (18:28)
[2023-02-18 19:39] LABS: Creatine Kinase 60 U/L (30-135)
[2023-02-18 19:52] LABS: Troponin I < 0.012 ng/mL (0.01-0.034)
--- NOTE | 2023-02-18 21:01 | DI.NM.S_ITS ---
PROCEDURE: NM EXERCISE TREADMILL NON NUC COMPARISON: None INDICATIONS: CP FINDINGS: Rest ECG sinus rhythm. Angel protocol 4:02, maximum heart rate 124 bpm (84% predicted), maximum blood pressure 166/100, 7.0 METS, CLAUDE +27%. Stress ECG sinus tachycardia, no ST segment changes or arrhythmia. The patient did not complain of exercise-induced chest pain. IMPRESSION: Low risk study. No evidence of exercise-induced ischemia or arrhythmia. Normal hemodynamic response. Reduced exercise tolerance. Dictated by: Samantha Saez D.O. on 02/19/2023 at 12:53 Approved by: Samantha Saez D.O. on 02/19/2023 at 12:56
--- NOTE | 2023-02-18 21:02 | DI.ECHO.S_ITS ---
[facility] +---------+ : : [address] : [address] : : : : [id number] : : : : Phone: [phone]+ Echocardiogram Report + + :Name: KODY RUBIO Study Date: 02/19/2023 Height: 68 in : :[facility] ReadingLocation: Weight: 205 lb : : Gender: Female BSA: 2.1 m2 : :: 1950 Age: 73 yrs BP: 112/55 mmHg: :Reason For Study: CHEST PAIN : :Ordering Physician: DARRELL, : :DEANNA Performed By: Candace Billy : :Referring: DEANNA RAMÍREZ : + + Interpretation Summary Sinus bradycardia with heart rate 38-53 bpm during the exam. Normal LV size and wall thickness. Normal wall motion and LV systolic function. Ejection fraction is 60-65%. Normal chamber sizes. No significant valvular abnormalities. PA systolic pressure is 29 mm Hg assuming RA pressure of 3 mm Hg. NO prior study available for comparison. Procedure: A two-dimensional transthoracic echocardiogram with color flow and Doppler was performed. The study quality was technically adequate. There is no prior echocardiogram noted for this patient. The patient was in sinus bradycardia with heart rates between 38-53 bpm during the exam. Left Ventricle: The left ventricle is normal in size and wall thickness. The estimated left ventricular end diastolic volume is 63 ml. The ejection fraction is estimated to be 55-60%. Right Ventricle: Borderline right ventricular enlargement. The right ventricular systolic function is normal. Atria: The left atrium is borderline dilated. Right atrial size is normal. There is no Doppler evidence for an interatrial shunt. Mitral Valve: The mitral valve is normal in structure and function. There is mild mitral regurgitation. Aortic Valve: The aortic valve opens well. There is no aortic valve stenosis. There is trace aortic regurgitation. Tricuspid Valve: The tricuspid valve is normal in structure and function. There is mild tricuspid regurgitation. The right ventricular systolic pressure is estimated to be at least 29 mmHg based on an estimated right atrial pressure of 3 mm Hg. Pulmonic Valve: The pulmonic valve is not well visualized. There is no pulmonic valvular regurgitation. Great Vessels: The aortic root is normal size. The dimensions of the ascending aorta are normal. The IVC is of normal diameter and collapses greater than 50% with a sniff. This suggests a low right atrial pressure of 3 mm Hg. Pericardium/ Pleura There is no pericardial effusion. There is no pleural effusion. MMode/2D Measurements & Calculations LVIDd: 4.6 cm LVOT diam: 1.8 cm LVIDs: 2.9 cm Ao root diam: 3.1 cm FS: 36.0 % asc Aorta Diam: 3.3 cm EPSS: 0.72 cm IVSd: 1.0 cm LVPWd: 0.76 cm LV maharaj. diameter/BSA (cm/m^2): 2.2 LV sys. diameter/BSA (cm/m^2): 1.4 LA A2 area: 20.7 cm2 RA long axis: 5.0 cm LA A4 area: 22.4 cm2 RA area: 20.2 cm2 LA length (vol): 5.6 cm RA vol: 68.8 ml LA vol: 70.1 ml RA : 33.3 ml/m2 LA vol index: 34.0 ml/m2 IVC diam: 1.7 cm RVD1 (basal): 4.1 cm RVD2 (mid): 3.5 cm TAPSE: 2.5 cm Doppler Measurements & Calculations Ao V2 max: 128.3 cm/sec LVOT Max Rocky: 94.2 cm/sec Ao V2 mean: 85.0 cm/sec LV V1 max P.5 mmHg Ao max P.6 mmHg LV V1 VTI: 26.9 cm Ao mean P.3 mmHg CLARK(I,D): 2.1 cm2 Ao V2 VTI: 32.7 cm CLARK(V,D): 1.9 cm2 sev ratio: 0.82 CLARK indexed to BSA (cm^2/m^2): 1.0 MV E max rocky: 85.2 cm/sec TR max rocky: 255.8 cm/sec MV A max rocky: 67.7 cm/sec TR max P.2 mmHg MV E/A: 1.3 PA V2 max: 78.3 cm/sec Med Peak E' Rocky: 6.5 cm/sec PA V2 mean: 58.3 cm/sec E/E' med: 13.2 PA mean P.5 mmHg Lat Peak E' Rocky: 8.3 cm/sec PA pr(Accel): 43.0 mmHg E/E' lat: 10.3 E/e' average: 11.7 MV dec time: 0.20 sec SV(LVOT): 67.9 ml Electronically signed by: Latanya Muir M.D. on Reading Physician:02/19/2023 09:08 AM
--- NOTE | 2023-02-18 21:08 | P.HP_ITS ---
History of Present Illness History of Present Illness Date Patient Seen: 02/18/23 Time Patient Seen: 21:08 Chief complaint: chest pain Narrative: Mrs. Mary Worrell is a 73 yr female with a medical history of Roberto's hypothyroidism w/ radiation, hyperlipidemia, asthma, and obesity who presented to the ED following an episode of chest pressure yesterday lasting several hours at rest and chest pressure today. Patient describes a retrosternal chest heaviness without radiation without exacerbating factors at rest lasting a couple hours with no concurrent symptoms of SOB, diaphoresis, headache, changes in vision, numbness, tingling, weakness, swelling of extremities. When the chest pressure onset today she was brought into the ED by her , she pre sented with mild hypertension 189/84, 177/82 without the diagnosis of hypertension, she was bradycardic which she says is at her baseline, and chest pain was resolved with 1 nitro. On admit patient denies difficulty swallowing, speech impairment, difficulty with ambulation, recent falls, head injury, LOC, fever, body aches, chills, cough, urinary retention, dysuria, frequency, urgency, hematuria, bowel changes, melena, rashes, recent changes to medication, injury, or trauma. Patient does endorse having a headache following the nitroglycerin, notes that approximately 1 week ago she had 1 day of diarrhea nausea and vomiting has since been constipated. Patient's hypertension and chest pain have completely resolved, BP 139/61, HR 50, patient's CBC CMP lipid panel and troponin x2, CXR are all normal. I personally reviewed EKG NSR with baseline bradycardia without ST or T-wave changes. Heart score: 4. Patient denies any cardiac history, no prior workup, no family history of cardiac issues, no prior episodes of chest pain, smoked approximately 10 years and quit in 1996, occasionally 0-3 drinks per day wine/beer, no recreational substances, retired and lives with her . Richa ent admitted for chest pain at rest with elevated blood pressure- for risk stratification. [facility] Medical History Asthma Bradycardia Chicken pox Chronic back pain Foot pain Gout Roberto's thyroiditis Hearing loss Hyperlipidemia Measles Osteoarthritis Shoulder pain Sleep apnea Urge incontinence Wears glasses Surgical History Anesthesia History of tubal ligation (~07/05/79) Family History (Updated 02/19/23 @ 02:06 by CITLALLI Schmidt) Mother Alzheimer's dementia with agitation Father No problems noted. Social History household members: spouse Smoking Status: Former smoker alcohol intake: current Meds Home Medications and Allergies Home Medications Medication Instructions Recorded Confirmed Type albuterol sulfate 90 mcg/actuation 2 puff inhalation Q4-6H PRN 05/12/22 02/18/23 Rx aerosol inhaler (Ventolin HFA) bronchospasm #6.7 grams blood sugar diagnostic (OneTouch #100 ea 09/02/22 02/18/23 Rx Verio test strips) allopurinol 100 mg tablet 100 mg PO BID #180 tabs 10/07/22 02/18/23 Rx ibuprofen 600 mg tablet 600 mg PO Q8H PRN pain #90 tabs 10/07/22 02/18/23 Rx levothyroxine 100 mcg tablet 100 mcg PO DAILY #90 tabs 10/07/22 02/18/23 Rx oxybutynin chloride 5 mg tablet 5 mg PO BID #180 tabs 10/07/22 02/18/23 Rx simvastatin 80 mg tablet 80 mg PO QPM #90 tabs 10/07/22 02/18/23 Rx Allergies Allergy/AdvReac Type Severity Reaction Status Date / Time No Known Drug Allergies Allergy Verified 02/18/23 17:22 Review of Systems Review of Systems Narrative: All 12 point systems reviewed with the patient and are negative except otherwise documented. Exam Vital Signs (past 8 hours): - 02/18/23 17:18 02/18/23 17:46 02/18/23 18:00 Temperature 97.6 F Pulse Rate 59 L 59 L 48 L Respiratory Rate 20 22 Blood Pressure 189/84 H Pulse Oximetry 99 98 98 Oxygen Delivery Method Room Air 02/18/23 18:01 02/18/23 18:01 02/18/23 18:30 Temperature Pulse Rate 49 L 59 L Respiratory Rate 21 19 Blood Pressure 177/82 H Pulse Oximetry 98 99 Oxygen Delivery Method 02/18/23 18:34 02/18/23 18:34 02/18/23 18:36 Temperature Pulse Rate 72 58 L Respiratory Rate 30 H 20 Blood Pressure 153/67 H Pulse Oximetry 98 97 Oxygen Delivery Method 02/18/23 18:36 02/18/23 19:00 02/18/23 19:00 Temperature Pulse Rate 50 L Respiratory Rate 11 L Blood Pressure 153/67 H 139/61 Pulse Oximetry 97 Oxygen Delivery Method Oxygen Delivery Method Room Air Objective Labs 02/18/23 17:37 02/18/23 17:37 Labs: Laboratory Results - last 24 hr 02/18/23 02/18/23 02/18/23 17:37 17:37 17:37 WBC 5.4 RBC 4.00 Hgb 13.1 Hct 39.0 MCV 97.7 MCH 32.8 MCHC 33.5 RDW 13.7 Plt Count 166 Neut % (Auto) 64.9 Lymph % (Auto) 28.9 [place] % (Auto) 5.6 Eos % (Auto) 0.0 L Baso % (Auto) 0.6 Neut # (Auto) 3500 Lymph # (Auto) 1600 [place] # (Auto) 300 Eos # (Auto) 0 Baso # (Auto) 0 PT 11.4 INR 1.0 APTT 28 Sodium 140 Potassium 3.5 Chloride 104 Carbon Dioxide 31 BUN 12 Creatinine 0.76 Estimated GFR > 60 BUN/Creatinine Ratio 15.8 Glucose 99 Calcium 9.0 Magnesium 2.3 Total Bilirubin 0.9 AST 27 ALT 29 Alkaline Phosphatase 49 Total Creatine Kinase 65 CK-MB (CK-2) TNP CK-MB (CK-2) Rel Index TNP Troponin I < 0.012 Total Protein 7.2 Albumin 4.2 Globulin 3.0 Albumin/Globulin Ratio 1.4 Lipase 34 02/18/23 19:25 WBC RBC Hgb Hct MCV MCH MCHC RDW Plt Count Neut % (Auto) Lymph % (Auto) [place] % (Auto) Eos % (Auto) Baso % (Auto) Neut # (Auto) Lymph # (Auto) [place] # (Auto) Eos # (Auto) Baso # (Auto) PT INR APTT Sodium Potassium Chloride Carbon Dioxide BUN Creatinine Estimated GFR BUN/Creatinine Ratio Glucose Calcium Magnesium Total Bilirubin AST ALT Alkaline Phosphatase Total Creatine Kinase 60 CK-MB (CK-2) TNP CK-MB (CK-2) Rel Index TNP Troponin I < 0.012 Total Protein Albumin Globulin Albumin/Globulin Ratio Lipase Assessment & Plan Assessment & Plan narrative: Mrs. Mary Worrell is a 73 yr female with a medical history of Roberto's hypothyroidism w/radiation, hyperlipidemia, asthma, and obesity who presented to the ED following an episode of retrosternal nonradiating chest pressure/heaviness yesterday and today, lasting several hours at rest, resolved today with nitroglycerin. Patient admitted for chest pain at rest with elevated blood pressure without the diagnosis of hypertension & risk stratification. Chest pain, at rest, retrosternal, acute, present on admission * Heart score: 4, troponin x2 negative, repeat in a.m * Patient admitted under chest pain protocol. * Resolved with nitroglycerin x1 * ASA, Lipitor, tele * Patient has no prior cardiac history or family history. * Monitor overnight * Echo and exercise stress ordered for tomorrow Elevated blood pressure without the diagnosis of hypertension, acute, present on admission * BP in ED 189/84, 177/82 * On admit 139/61 * Continued trend and monitor blood pressure Hyperlipidemia, chronic, present on admission * Replace patient's simvastatin with Lipitor Hypothyroidism, secondary to Roberto's status post thyroid radiation, chronic, present on admission * Continue Synthroid * Ordered TSH/T4 Obesity, mild, acute on chronic, present on admission * BMI 31.3 -dietary consult ordered regarding nutritional education and information for dietary, lifestyle, exercise, and weight changes. -the patient is at much higher risk for medical and surgical complications due to obesity as it relates to chronic illnesses:, and acute illness. The patient's obesity increases the difficulty and complexity of medical and/or surgical interventions, management and increases the chances of poor outcome such as morbidity and mortality as well as impaired wound healing. Code status: DNR DNI Surrogate decision maker: Spouse Santana Worrell DVT/VTE prophylaxis: Lovenox and SCDs Disposition: Patient admitted for observation chest pain risk stratification, length of stay not expected to exceed 2 midnights. I have utilized all available immediate resources to obtain, update, or review the patient's current medications. I confirmed that the patient's advanced care plan is present, Code status is documented and/or surrogate decision maker is listed in the patient's medical record. I have personally reviewed patient's chart notes from PCP, specialists, diagnostic imaging, and laboratory results.
[2023-02-18 21:40] LABS: Cholesterol 162 mg/dL (140-199); HDL Cholesterol 68 mg/dL (40-60); LDL Cholesterol Calculated 63 mg/dL (<100); Magnesium 2.2 mg/dL (1.6-2.3); Triglycerides 156 mg/dL (35-150)
[2023-02-18 21:50] LABS: NT-proBNP (BNP-Adult 18+) 178 pg/mL (<125)
[2023-02-18 22:13] LABS: TSH w/ Reflex to FT4 3.51 uIU/mL (0.47-4.68)
[2023-02-18] MEDS: ACETAMINOPHEN 325 MG TABLET 650 MG PO (23:12)
[2023-02-19 02:12] VITALS: BP 112/55; PULSE 56; RESP 14; TEMP 35.8; O2SAT 94
[2023-02-19] MEDS: LEVOTHYROXINE 100 MCG TABLET PO (06:23)
[2023-02-19 07:00] VITALS: BP 165/60; PULSE 40; RESP 17; TEMP 35.9; O2SAT 98
[2023-02-19 07:18] LABS: Troponin I < 0.012 ng/mL (0.01-0.034)
[2023-02-19 07:53] LABS: Appearance Urine UA CLEAR; Bilirubin Urine UA NEGATIVE (NEGATIVE); Color Urine UA YELLOW; Glucose Urine UA NEGATIVE (Negative); Ketones Urine UA NEGATIVE (NEGATIVE); Leukocyte Esterase Urine UA TRACE (NEGATIVE); Nitrite Urine UA NEGATIVE (Negative); Occult Blood Urine UA NEGATIVE (Negative); Protein Urine UA NEGATIVE (Negative)
[2023-02-19 07:55] LABS: pH Urine UA 6.5 (4.5-8.0)
[2023-02-19 08:03] LABS: Amorphous Sediment Urine 1+; Bacteria Urine Moderate (10-30); Mucus Urine 1+ (Negative); RBC Urine None Seen (0-5/HPF); Squamous Epithelial Cell Urine 10-30 /HPF (0-5/HPF); WBC Urine 1-5/HPF (0-5/HPF)
[2023-02-19 08:05] LABS: Culture Indicated Urine Specimen Cultured
[2023-02-19] MEDS: ASPIRIN EC 325 MG TABLET PO (09:13)
[2023-02-19] MEDS: ENOXAPARIN 40 MG/0.4 ML SYRINGE SUBCUT (09:13)
--- NOTE | 2023-02-19 09:19 | CM.DANOTE ---
DCP: Case received, EMR reviewed and met with patient. Spouse, Santana, was at bedside. Introduced self and role. Was able to obtain information regarding patient's baseline activity status prior to hospitalization. DCP assessment completed with information currently available. Patient is a 73 year old female who admitted yesterday evening to the care of the hospitalist team. PCP: Dr. Bear. Payer: confirmed: [facility]. Patient came to the hospitalist via private vehicle secondary to having chest pain. Notes indicate that patient complained of pain approximately for 2 hours, before arriving to the hospital. She also indicated, she felt like someone was sitting on her chest. Patient was given a nitro, symptoms had resolved. Patient is admitted for chest pain, elevated BP. Plan is for echo and stress test for today. Met with patient in her room. Spouse at bedside. Patient is alert and oriented. They both reside in [place]. She is independent at baseline. P: DCP to continue to follow. Plan is home when deemed medically stable after testing. Sangeeta Love RN/Application Support Administrator Discharge Planning/Care Management CM Discharge Assessment Start: 02/19/23 09:18 Freq: Status: Active Protocol: Document 02/19/23 09:18 (Rec: 02/19/23 09:19 [id number]) Discharge Planning Assessment Assigned [facility] [employer] Sangeeta Love RN/Application Support Administrator Advance Directives? No History Provided By Patient,Medical Record Prior Living Arrangements House Household Members spouse Type of transporation used prior to Drives own vehicle admit Independent with ADL's Yes Is patient alert and oriented? Yes Caregiver for Another No Barriers to Discharge No Discharge Plan Home Transportation Arrangement Spouse Referrals Initiated None needed Whiteboard Updated in Patient Room with Yes name and ext. # of [facility] [employer] Review Status In Process Next Review Type Continued Stay Review
--- NOTE | 2023-02-19 13:04 | PM.DS.1 ---
History of Present Illness History of Present Illness Date Patient Seen: 02/18/23 Time Patient Seen: 21:08 Chief complaint: chest pain Narrative: Mrs. Mary Worrell is a 73 yr female with a medical history of Roberto's hypothyroidism w/ radiation, hyperlipidemia, asthma, and obesity who presented to the ED following an episode of chest pressure yesterday lasting several hours at rest and chest pressure today. Patient describes a retrosternal chest heaviness without radiation without exacerbating factors at rest lasting a couple hours with no concurrent symptoms of SOB, diaphoresis, headache, changes in vision, numbness, tingling, weakness, swelling of extremities. When the chest pressure onset today she was brought into the ED by her , she presented with mild hypertension 189/84, 177/82 without the diagnosis of hypertension, she was bradycardic which she says is at her baseline, and chest pain was resolved with 1 nitro. On admit patient denies difficulty swallowing, speech impairment, difficulty with ambulation, recent falls, head injury, LOC, fever, body aches, chills, cough, urinary retention, dysuria, frequency, urgency, hematuria, bowel changes, melena, rashes, recent changes to medication, injury, or trauma. Patient does endorse having a headache following the nitroglycerin, notes that approximately 1 week ago she had 1 day of diarrhea nausea and vomiting has since been constipated. Patient's hypertension and chest pain have completely resolved, BP 139/61, HR 50, patient's CBC CMP lipid panel and troponin x2, CXR are all normal. I personally reviewed EKG NSR with baseline bradycardia without ST or T-wave changes. Heart score: 4. Patient denies any cardiac history, no prior workup, no family history of cardiac issues, no prior episodes of chest pain, smoked approximately 10 years and quit in 1996, occasionally 0-3 drinks per day wine/beer, no recreational substances, retired and lives with her . Patient admitted for chest pain at rest with elevated blood pressure- for risk stratification. Discharge Providers Provider Date of admission: 02/18/23 20:59 Discharge Date: 02/19/23 Primary care physician: Gerald Bear MD Consults: 02/18/23 21:06 Consult to Dietitian, Adult Routine Comment: Reason For Exam: BMI 31.2 Discharge provider: Evan A Miller, DO Summary Hospital Course Discharge Diagnosis: Chest pain, at rest, retrosternal, acute, present on admission Heart score: 4,? troponin x3 negative Patient admitted under chest pain protocol. Resolved with nitroglycerin x1 ASA, Lipitor, tele Patient has no prior cardiac history or family history. echo with EF 60-65%, no WMA's exercise non-nuc stress was low risk study with no ischemia or arrythmia possibly esophageal related as patient notes difficulty swallowing and heartburn history trial of 40mg daily protonix ordered on dc Elevated blood pressure without the diagnosis of hypertension, acute, present on admission BP in ED 189/84, 177/82 On admit 139/61 Continued trend and monitor blood pressure Hyperlipidemia, chronic, present on admission Replace patient's simvastatin with Lipitor lipid panel WNL with LDL 63 Hypothyroidism, secondary to Roberto's status post thyroid radiation, chronic, present on admission Continue Synthroid TSH normal ? Obesity, mild, acute on chronic, present on admission BMI 31.3 the patient is at much higher risk for medical and surgical complications due to obesity as it relates to chronic illnesses:, and acute illness.? The patient's obesity increases the difficulty and complexity of medical and/or surgical interventions, management and increases the chances of poor outcome such as morbidity and mortality as well as impaired wound healing. Hospital Course: Admitted for chest pain. Workup was negative. Put on PPI for possible GERD related pain, as patient also notes difficulty swallowing. She will f/u with PCP to discuss barium swallow vs EGD in the future if PPI trial fails. Time Spent with Patient Time spent: Greater than 30 minutes Exam Vital Signs (past 8 hours): - 02/19/23 07:00 Temperature 96.6 F L Pulse Rate 40 L Respiratory Rate 17 Blood Pressure 165/60 H Pulse Oximetry 98 Oxygen Flow Rate 0 Oxygen Delivery Method Room Air Oxygen Flow Rate 0 Narrative Exam Narrative: GEN: no acute distress HEENT: moist mucous membranes, PERRL NECK: trachea midline, no JVD CV: regular rate and rhythm, no murmurs PULM: clear bilaterally ABD: soft, nontender, nondistended, no organomegaly EXT: warm and well perfused with no edema NEURO: awake, alert, oriented, no focal deficits Objective Labs 02/18/23 17:37 02/18/23 17:37 Labs: Laboratory Results - last 24 hr 02/18/23 02/18/23 02/18/23 17:37 17:37 17:37 WBC 5.4 RBC 4.00 Hgb 13.1 Hct 39.0 MCV 97.7 MCH 32.8 MCHC 33.5 RDW 13.7 Plt Count 166 Neut % (Auto) 64.9 Lymph % (Auto) 28.9 Stephenson % (Auto) 5.6 Eos % (Auto) 0.0 L Baso % (Auto) 0.6 Neut # (Auto) 3500 Lymph # (Auto) 1600 Stephenson # (Auto) 300 Eos # (Auto) 0 Baso # (Auto) 0 PT 11.4 INR 1.0 APTT 28 Sodium 140 Potassium 3.5 Chloride 104 Carbon Dioxide 31 BUN 12 Creatinine 0.76 Estimated GFR > 60 BUN/Creatinine Ratio 15.8 Glucose 99 Calcium 9.0 Magnesium 2.3 Total Bilirubin 0.9 AST 27 ALT 29 Alkaline Phosphatase 49 Total Creatine Kinase 65 CK-MB (CK-2) TNP CK-MB (CK-2) Rel Index TNP Troponin I < 0.012 NT-Pro-B Natriuret Pep Total Protein 7.2 Albumin 4.2 Globulin 3.0 Albumin/Globulin Ratio 1.4 Triglycerides Cholesterol LDL Cholesterol, Calc HDL Cholesterol Lipase 34 TSH Urine Color Urine Appearance Urine pH Ur Specific [place] Urine Protein Urine Glucose (UA) Urine Ketones Urine Occult Blood Urine Nitrate Urine Bilirubin Urine Urobilinogen Ur Leukocyte Esterase Urine RBC Urine WBC Ur Squamous Epith Cells Amorphous Sediment Urine Bacteria Urine Mucus Ur Culture Indicated? 02/18/23 02/18/23 02/18/23 17:37 19:25 19:25 WBC RBC Hgb Hct MCV MCH MCHC RDW Plt Count Neut % (Auto) Lymph % (Auto) Stephenson % (Auto) Eos % (Auto) Baso % (Auto) Neut # (Auto) Lymph # (Auto) Stephenson # (Auto) Eos # (Auto) Baso # (Auto) PT INR APTT Sodium Potassium Chloride Carbon Dioxide BUN Creatinine Estimated GFR BUN/Creatinine Ratio Glucose Calcium Magnesium Total Bilirubin AST ALT Alkaline Phosphatase Total Creatine Kinase 60 CK-MB (CK-2) TNP CK-MB (CK-2) Rel Index TNP Troponin I < 0.012 NT-Pro-B Natriuret Pep Total Protein Albumin Globulin Albumin/Globulin Ratio Triglycerides 156 H Cholesterol 162 LDL Cholesterol, Calc 63 HDL Cholesterol 68 H Lipase TSH 3.51 Urine Color Urine Appearance Urine pH Ur Specific [place] Urine Protein Urine Glucose (UA) Urine Ketones Urine Occult Blood Urine Nitrate Urine Bilirubin Urine Urobilinogen Ur Leukocyte Esterase Urine RBC Urine WBC Ur Squamous Epith Cells Amorphous Sediment Urine Bacteria Urine Mucus Ur Culture Indicated? 02/18/23 02/18/23 02/19/23 19:25 19:25 06:14 WBC RBC Hgb Hct MCV MCH MCHC RDW Plt Count Neut % (Auto) Lymph % (Auto) Stephenson % (Auto) Eos % (Auto) Baso % (Auto) Neut # (Auto) Lymph # (Auto) Stephenson # (Auto) Eos # (Auto) Baso # (Auto) PT INR APTT Sodium Potassium Chloride Carbon Dioxide BUN Creatinine Estimated GFR BUN/Creatinine Ratio Glucose Calcium Magnesium 2.2 Total Bilirubin AST ALT Alkaline Phosphatase Total Creatine Kinase CK-MB (CK-2) CK-MB (CK-2) Rel Index Troponin I < 0.012 NT-Pro-B Natriuret Pep 178 H Total Protein Albumin Globulin Albumin/Globulin Ratio Triglycerides Cholesterol LDL Cholesterol, Calc HDL Cholesterol Lipase TSH Urine Color Urine Appearance Urine pH Ur Specific [place] Urine Protein Urine Glucose (UA) Urine Ketones Urine Occult Blood Urine Nitrate Urine Bilirubin Urine Urobilinogen Ur Leukocyte Esterase Urine RBC Urine WBC Ur Squamous Epith Cells Amorphous Sediment Urine Bacteria Urine Mucus Ur Culture Indicated? 02/19/23 07:30 WBC RBC Hgb Hct MCV MCH MCHC RDW Plt Count Neut % (Auto) Lymph % (Auto) Stephenson % (Auto) Eos % (Auto) Baso % (Auto) Neut # (Auto) Lymph # (Auto) Stephenson # (Auto) Eos # (Auto) Baso # (Auto) PT INR APTT Sodium Potassium Chloride Carbon Dioxide BUN Creatinine Estimated GFR BUN/Creatinine Ratio Glucose Calcium Magnesium Total Bilirubin AST ALT Alkaline Phosphatase Total Creatine Kinase CK-MB (CK-2) CK-MB (CK-2) Rel Index Troponin I NT-Pro-B Natriuret Pep Total Protein Albumin Globulin Albumin/Globulin Ratio Triglycerides Cholesterol LDL Cholesterol, Calc HDL Cholesterol Lipase TSH Urine Color Yellow Urine Appearance Clear Urine pH 6.5 Ur Specific [place] 1.020 Urine Protein Negative Urine Glucose (UA) Negative Urine Ketones Negative Urine Occult Blood Negative Urine Nitrate Negative Urine Bilirubin Negative Urine Urobilinogen 1.0 Ur Leukocyte Esterase Trace H Urine RBC None seen Urine WBC 1-5/hpf Ur Squamous Epith Cells 10-30 /hpf H Amorphous Sediment 1+ Urine Bacteria Moderate (10-30) H Urine Mucus 1+ H Ur Culture Indicated? Specimen cultured [facility] Medical History Asthma Bradycardia Chicken pox Chronic back pain Foot pain Gout Roberto's thyroiditis Hearing loss Hyperlipidemia Measles Osteoarthritis Shoulder pain Sleep apnea Urge incontinence Wears glasses Surgical History Anesthesia History of tubal ligation (~07/05/79) Family History (Updated 02/19/23 @ 02:06 by CITLALLI Schmidt) Mother Alzheimer's dementia with agitation Father No problems noted. Social History household members: spouse Smoking Status: Former smoker alcohol intake: current Discharge Plan Discharge Plan Patient Disposition: Home Discharge orders & Medications Prescriptions: New pantoprazole [Protonix] 40 mg tablet,delayed release (DR/EC) 40 mg PO DAILY 30 Days Qty: 30 0RF Continued albuterol sulfate [Ventolin HFA] 90 mcg/actuation HFA aerosol inhaler 2 puff inhalation Q4-6H PRN (Reason: bronchospasm) Qty: 6.7 3RF (DME) OneTouch Verio test strips Strip See Rx Instructions .Route Qty: 100 0RF Rx Instructions: As directed simvastatin 80 mg tablet 80 mg PO QPM Qty: 90 3RF allopurinol 100 mg tablet 100 mg PO BID Qty: 180 3RF ibuprofen 600 mg tablet 600 mg PO Q8H PRN (Reason: pain) Qty: 90 3RF levothyroxine 100 mcg tablet 100 mcg PO DAILY Qty: 90 3RF oxybutynin chloride 5 mg tablet 5 mg PO BID Qty: 180 3RF Follow up/Referrals: Gerald Bear MD [Primary Care Provider] - 03/05/23 2:00 pm (Appt:03/05 @ 2:[address] Bear please arrive 115 minutes prior to scheduled appointment time) Visit Report/Discharge Packet Instructions: How to Prevent Falls, DI for Chest Pain Stand Alone Forms: Patient Portal/API, Stroke Signs & Symptoms Discharge Data Primary Care Provider: Gerald Bear Attending Provider: Jami Fajardo Admit Date/Time: 02/18/23 20:59 Discharges patient from system. Discharge Date/Time: 02/19/23 14:05 Quality VTE Deep Vein Thrombosis/Pulmonary Embolism Present on Admission: No
--- NOTE | 2023-02-19 14:08 | PC.NURSE ---
Day shift: Went over discharge instructions with patient and patient's spouse. Answered all questions and patient verbalized understanding. IV and tele removed. Patient stated she had all belongings. Patient declined wheelchair upon discharge. Walked pt and patient's spouse to emergency room entrance. Off unit at 1405.
== END 2023-02-19 14:05 | disposition home or self-care (01) ==
LOC: ED 20:50 → AC 21:00
PROVIDERS: Emergency Medicine; Admitting Provider Nurse Practitioner Family; Emergency Provider Emergency Medicine; Family Provider Family Medicine; PCP Family Medicine; Visit Provider Nurse Practitioner Family
DX: R07.9 Chest pain, unspecified (principal); R03.0 Elevated blood-pressure reading, without diagnosis of hypertension; E78.5 Hyperlipidemia, unspecified; E06.3 Autoimmune thyroiditis; E66.9 Obesity, unspecified; Z68.31 Body mass index [BMI] 31.0-31.9, adult
CPT/HCPCS: 36415; 71045; 80053; 80061; 81001; 82550; 83690; 83735; 83880; 84443; 84484; 85025; 85610; 85730; 87086; 93005; 93010; 93017; 93306; 96372; 99284; G0378; J1650

== ENCOUNTER → 2023-04-15 09:46 | Outpatient (CLI) | payer OTHER, SELFPAY ==
[2023-02-18 22:10] VITALS: BMI 31.1
--- NOTE | 2023-04-15 09:49 | DI.RAD.S_ITS ---
PROCEDURE: FL BARIUM SWALLOW W SPEECH INDICATIONS: Difficulty swallowing solids COMPARISON: None. TECHNIQUE: Examination was conducted in conjunction with speech pathology per standard protocol. In the lateral projection, filming was performed of the patient swallowing. AP projection filming may also be performed with patient swallowing. COMPARISON: FINDINGS: Function: The oral preparatory phase appears normal, with proper containment. The subsequent oral propulsive phase, pharyngeal phase, and esophageal phase of swallowing also appear normal with all proffered substances. No laryngotracheal penetration or aspiration. No pathologic vallecular pooling. Morphology: No cricopharyngeal bar is identified. No cervical esophageal webs. No Zenker's diverticulum. No strictures. IMPRESSION: No laryngeal tracheal penetration or aspiration. Delayed esophageal motility. Please refer to speech pathologist's note for further evaluation. Dictated by: Tito Stephen M.D. on 04/15/2023 at 18:02 Approved by: Tito Stephen M.D. on 04/15/2023 at 18:03
--- NOTE | 2023-04-15 13:14 | ST.SWALLOW ---
Visit Care Team Role Provider Type Gerald Bear MD Attending Provider Physician Family Provider Primary Care Provider Referring Provider Specialty: Family Practice Address: [address] [place] [address], [facility] Email: [email or web address] Modified Barium Swallow Study SECURITY OPERATIONS ANALYST Modified Barium Swallow Study Start: 04/15/23 12:10 Freq: Status: Active Protocol: Document 04/15/23 12:11 LNK (Rec: 04/15/23 13:14 LNK [id number]) Modified Barium Swallow Study Total Time Visit Start Time 10:00 Visit Stop Time 10:30 Total Visit Minutes [address] Bear Reason for Referral dysphagia Setting Setting Outpatient Care Patient Information Identification Type Name,Date of Patient History Pt was seen for a Modified Barium Swallow Study at the referral of Dr. Bear. According to the pt's records and today's interview, she is a 73-year-old female who was recently seen at [facility] for chest discomfort and difficulty swallowing. She reported that the results of testing done at the hospital were normal. She was started on pantoprazole for GERD and has not had any chest discomfort since. Pt reports difficulty swallowing solid foods. She describes herself as eating fast with large bites, but she does report chewing foods well. Her swallow difficulty has been progressively worsening over the last year or so. Recently , she has self-started to alternate solids and liquids during meals, which she states has been effective in eliminating pain with swallowing. PMH includes: GERD for a long time, Asthma , Bradycardia and Roberto's thyroiditis. Subjective Observations Pt presented to the fluoroscopy room and was seated in the fluoroscopy chair with instructions ans procedure described. Pt indicated she understood and agreed to proceed. Patient Positioning Position View Lat-A/P Imaging Lateral View Textures Administered Trials Presented Thin Liquid via Spoon (IDDSI 0 ),Thin Liquid via Cup (IDDSI 0 ),Extremely Thick Liquid via Spoon (IDDSI 4),Regular (IDDSI 7) Barium Tablet Yes The IDDSI Framework Protocol: IDDSI.1 Oral Impairment Source: The Modified Barium Swallow Impairment Profile (MBSImP??) Lip Closure No labial escape Tongue Control During Bolus Hold Cohesive bolus between tongue to palatal seal Bolus Preparation/Mastication Timely & efficient chewing & mashing Bolus Transport/Lingual Motion Brisk tongue motion Oral Residue Complete oral clearance Initiation of Pharyngeal Swallow Bolus head in valleculae Additional Oral Impairment Observations OME and DKS were noted to be WNL. Dentition was natural in good hygiene. ORAL PHASE: Mastication demonstrated rotary chew pattern. No oral residue was observed following all trials. Premature spillage to the valeculla pre -swallow. Pharyngeal Impairment Source: The Modified Barium Swallow Impairment Profile (MBSImP??) Soft Palate Elevation No bolus between soft palate & pharyngeal wall Laryngeal Elevation Comp.sup.move.thyroid cart.w/ comp.approx.arytenoids to epiglot petiole Anterior Hyoid Excursion Partial anterior movement Epiglottic Movement Complete inversion Laryngeal Vestibular Closure Complete; no air/contrast in laryngeal vestibule Pharyngeal Stripping Wave Present - complete Pharyngoesophageal Segment Opening Partial distention/partial duration; partial obstruction of flow Tongue Base Retraction Trace column of contrast/air betwn tongue base & post. pharyngeal wall Pharyngeal Residue Trace residue within/on pharyngeal structures Location Valleculae Additional Pharyngeal Impairment PHARYNGEAL PHASE: Pt's Observations pharyngeal phase of her swallow was observed to be WFL . Minimal contrast residual was noted at tongue base with adequate laryngeal elevation, partial hyoid movement and good laryngeal seal. Other pharyngeal structures and function were noted to be WFL with the exception of the PES which did not appear to have complete distention and and complete duration of opening. An osteophyte located at C4-C5 appeared to distort the esophagus proximal to the PES which may contribute to PES dysfunction. Following the semi-solid and solid trials, the pt reported a sensation of the trials to be sticking and she requested water to ease the stuck feeling. A/P View Textures Administered Trials Presented Regular (IDDSI 7) The IDDSI Framework Protocol: IDDSI.1 A/P View Observations Pharyngeal Contraction Complete Esophageal Clearance Upright Position Esophageal retention w/ regtrograde flow below pharyngoesoph segment Esophageal Function Slowed Clearing,Reverse Peristalsis,Stasis,Narrowing Additional A-P Observations The cookie (regular) and barium tablet trials demonstrated slowed esophageal clearing with bolus retention and partial bolus retroflow below the vocal folds. The bolus was slow to pass through the esophagus near the heart which caused to report pain with the trial. A water flush was effective in clearing the esophageal contents. Clinical Impressions Dysphagia Type Pharyngeal,Esophageal Patient Appropriate for Therapy No Recommendations Diet Liquids Order Thin (IDDSI 0) Diet Order Regular (IDDSI 7) Medication Recommendation As Tolerated,Whole in Carrier, Crushed in Carrier Aspiration Precautions Recommended Precautions Upright at 90 Degrees, Alternate Liquids/Solids, Frequent Rest Periods,Small Bites/Sips Additional Precautions Slow rate of intake Treatment Plan Recommended Referrals GI Consult Therapy Strategy Recommendations Small Bites and Sips,Alternate Liquids/Solids
== END ==
PROVIDERS: Family Provider Family Medicine; PCP Family Medicine; Referring Provider Family Medicine; Visit Provider Family Medicine
DX: R13.10 Dysphagia, unspecified (principal)
CPT/HCPCS: 74230; 92611

== ENCOUNTER → 2023-04-19 13:38 | Outpatient (CLI) | payer OTHER, SELFPAY ==
[2023-02-18 22:10] VITALS: BMI 31.1
[2023-04-21 17:18] LABS: Fecal Immunochemical Test Negative (Negative)
== END ==
PROVIDERS: Family Provider Family Medicine; PCP Family Medicine; Referring Provider Family Medicine; Visit Provider Family Medicine
DX: Z12.11 Encounter for screening for malignant neoplasm of colon (principal)
CPT/HCPCS: 82274

== ENCOUNTER → 2023-06-30 12:06 | Outpatient (CLI) | payer OTHER, SELFPAY ==
[2023-02-18 22:10] VITALS: BMI 31.1
--- NOTE | 2023-06-30 12:08 | DI.US.S_ITS ---
PROCEDURE: US BREAST RT LIMITED COMPARISON: [facility], BREAST RT LIMITED, 08/28/2022, 13:03. INDICATIONS: 6 mo s/p biopsy FINDINGS: IMPRESSION: Dictated by: Soni Aguila M.D. on 07/02/2023 at 1:30 Approved by: Soni Aguila M.D. on 07/02/2023 at 2:01
--- NOTE | 2023-06-30 12:08 | DI.MG.S_ITS ---
BILATERAL DIGITAL DIAGNOSTIC MAMMOGRAM 3D/2D SHORT-TERM FOLLOW-UP: 06/30/2023 CLINICAL: Short term follow up of the right breast, due for bilateral imaging.Post bx follow. Comparison is made to exams dated: 08/28/2022 mammogram and 07/16/2022 mammogram - [facility]. Both breasts are heterogeneously dense, which may obscure small masses (category c / 51-75% glandular tissue). There are multiple oval circumscribed masses in the right breast upper outer quadrant middle depth unchanged since prior mammogram 08/28/2022. There are biopsy marker clips in the right breast, including biopsy marker in the upper outer quadrant corresponding to prior high risk (ADH) and concordant biopsy on 09/30/2022. No other significant masses, calcifications, or other findings are seen in either breast. IMPRESSION: INCOMPLETE: NEEDS ADDITIONAL IMAGING EVALUATION Right breast oval circumscribed masses in the upper outer quadrant, stable since . Recommend further evaluation with targeted right breast ultrasound, which will immediately follow this exam. Surgical follow up for high risk ADH pathology from prior biopsy on 09/30/2022 is also recommended. Based on Tyrer-Cuzick model (a risk assessment model), the patient's lifetime risk is 28.4% and her 10 year risk is 22.0%. If a patient has an elevated risk, a more comprehensive evaluation should be considered and/or a referral to a genetic counselor. The [place] [employer], [place], and NCCN Guidelines advise the consideration of Breast MRI as an adjunct to screening mammography in patients whose Lifetime risk to develop breast cancer is 20% or higher. This exam was interpreted at Station ID: [id number]. NOTE: For mammograms, a report in lay terms will be sent to the patient. Approximately 15% of breast malignancies will not be visualized mammographically. In the management of a palpable breast mass, a negative mammogram must not discourage biopsy of a clinically suspicious lesion. Electronically Signed By: Soni Aguila M.D. esb/:07/02/2023 02:00:33 ACR BI-RADS Category 0: Incomplete [id number]
--- NOTE | 2023-06-30 13:16 | DI.US.S_ITS ---
Patient Name: KODY RUBIO date: 1950 Sex: F Attending Physician: Marianela Indications: Date: 07/02/2023 02:01 At the request of: AVEL LESLIE Procedure: US breast RT limited LIMITED ULTRASOUND OF RIGHT BREAST: 06/30/2023 CLINICAL: Patient returns today to evaluate two focal asymmetries in the right breast. Comparison is made to exams dated: 06/30/2023 mammogram, 09/30/2022 mammogram, 09/30/2022 ultrasound biopsy, 08/28/2022 ultrasound, 08/28/2022 mammogram, and 07/16/2022 mammogram - [facility]. Color flow and real-time ultrasound of the right breast 9 o'clock region were performed. There is a round hypoechoic mass with circumscribed margins at 9 o'clock, 1 cm from the nipple measuring 3 x 3 x 4 mm. Previously the mass measured 3 x 3 x 4 mm on 08/28/2022. There is oval anechoic mass with circumscribed margins containing mobile internal debris at 9 o'clock, 8 cm from the nipple. There is posterior acoustic enhancement. The mass measures 14 x 7 x 13 mm, previously 12 x 6 x 9 mm on 08/28/2022. Partially visualized simple cyst is seen adjacent to this finding. IMPRESSION: PROBABLY BENIGN Right breast 9 o'clock, 8 cm from the nipple 14 mm oval circumscribed mass, not significantly changed since 08/28/2022. Finding likely represents a complex cyst and is probably benign. Recommend mammogram and ultrasound in 1 year to demonstrate 2 year stability. Patient will be due for bilateral mammogram at that time. Right breast 9 o'clock, 1 cm from the nipple 4 mm round circumscribed mass, stable since 08/28/2022. Finding may represent a complicated cyst and is probably benign. Recommend mammogram and ultrasound in 1 year to demonstrate 2 year stability. Patient will be due for bilateral mammogram at that time. Surgical follow up for high risk ADH pathology from prior right breast biopsy on 09/30/2022 is also recommended. Findings and recommendations were conveyed to the patient during today's evaluation. This exam was interpreted at Station ID: [id number]. Electronically Signed By: Soni Aguila M.D. esb/:07/02/2023 02:01:11 Entry: - 07/02/2023 14:43:01 letter sent: Followup Recommended Ultrasound BI-RADS: 3 Probably benign
== END ==
PROVIDERS: Family Provider Family Medicine; PCP Family Medicine; Referring Provider Family Medicine; Visit Provider Family Medicine
DX: R92.8 Other abnormal and inconclusive findings on diagnostic imaging of breast (principal); N63.11 Unspecified lump in the right breast, upper outer quadrant
CPT/HCPCS: 76642; 77066; G0279